=== PATIENT | female | born 1935 | race Caucasian/White ===

== ENCOUNTER → 2017-02-08 | Outpatient (REF) | payer MEDICARE, OTHER ==
[2017-02-08 12:54] LABS: ANION GAP 8 MEQ/L (8-16); BLOOD UREA NITROGEN 17 MG/DL (7-18); CALCIUM LEVEL 9.2 MG/DL (8.8-10.2); CARBON DIOXIDE LEVEL 28 MEQ/L (21-32); CHLORIDE LEVEL 105 MEQ/L (98-107); CREATININE FOR GFR 0.89 MG/DL (0.55-1.02); GLOMERULAR FILTRATION RATE > 60.0 (>32); GLUCOSE, FASTING 85 MG/DL (83-110); POTASSIUM SERUM 4.4 MEQ/L (3.5-5.1); SODIUM LEVEL 141 MEQ/L (136-145)
== END ==
LOC: M LABDRAWC 11:49
PROVIDERS: ATTEND Ophthalmology
DX: I10 Essential (primary) hypertension (principal)

== ENCOUNTER 2017-03-26 16:19 | Emergency (ER) | payer MEDICARE, OTHER ==
[~2017-03-26] VITALS: Ht 152.4 cm; Wt 42.6 kg
[2017-03-26] MEDS ORDERED: [UNRECOGNIZED DRUG - CODE] PO (16:58)
[2017-03-26] MEDS ORDERED: ARTH1TAB4 PO (16:58)
[2017-03-26] MEDS ORDERED: CLAR1TAB2 PO (16:58)
[2017-03-26] MEDS ORDERED: CALC1TAB49 PO (16:58)
[2017-03-26] MEDS ORDERED: VITA10006 PO (16:58)
[2017-03-26] MEDS ORDERED: VERA120C PO (16:58)
[2017-03-26] MEDS ORDERED: [UNRECOGNIZED DRUG - CODE] PO (16:58)
[2017-03-26] MEDS ORDERED: D400400C PO (16:58)
[2017-03-26] MEDS ORDERED: HYDR7.5T66 PO (16:58)
[2017-03-26] MEDS ORDERED: GASTROGRAFIN SOLUTION 30ML PO ONE (17:45)
[2017-03-26 17:46] LABS: BASO % 0.2 % (0.0-1.0); EOS # 0.2 K/mm3 (0.0-0.50); LARGE UNSTAINED CELL # 0.1 K/mm3 (0.0-0.4); LYMPH # 1.7 K/mm3 (1.5-4.5); LYMPH % 14.1 % (24.0-44.0); MEAN CORPUSCULAR HEMOGLOBIN 30.9 pg (27.0-33.0); MEAN CORPUSCULAR HGB CONC 33.6 g/dl (32.0-36.5); MONO # 0.4 K/mm3 (0.0-0.8); MONO % 3.9 % (0.0-5.0); NEUTROPHILS # 8.7 K/mm3 (1.8-7.7); NEUTROPHILS % 78.8 % (36.0-66.0); PLATELET COUNT, AUTOMATED 326 k/mm3 (150-450); RED CELL DISTRIBUTION WIDTH 12.3 % (11.5-14.5); WHITE BLOOD COUNT 11.1 K/mm3 (4.0-10.0)
[2017-03-26 18:06] LABS: ANION GAP 7 MEQ/L (8-16); BLOOD UREA NITROGEN 14 MG/DL (7-18); CALCIUM LEVEL 8.7 MG/DL (8.8-10.2); CARBON DIOXIDE LEVEL 27 MEQ/L (21-32); CHLORIDE LEVEL 105 MEQ/L (98-107); CREATININE FOR GFR 0.91 MG/DL (0.55-1.02); GLOMERULAR FILTRATION RATE > 60.0 (>32); GLUCOSE, FASTING 99 MG/DL (83-110); POTASSIUM SERUM 4.1 MEQ/L (3.5-5.1); SODIUM LEVEL 139 MEQ/L (136-145)
[2017-03-26] MEDS ORDERED: GASTROGRAFIN SOLUTION 30ML (Q9963) PO ONE (18:15)
[2017-03-26] MEDS ORDERED: ISOVUE-370 76% 100ML VIAL (Q9967) As Ordered ONE (18:16)
--- NOTE | 2017-03-26 19:20 | REPUSA ---
CT of the abdomen and pelvis with contrast Clinical statement: Pain. Technique: Multiple axial CT images were obtained from the base of the lungs through the floor of the pelvis utilizing 5 mm axial slices after administration of oral and nonionic intravenous contrast. C oronal and sagittal reconstructions were also obtained. Comparison: 06/04/2007. Findings: Chest: The visualized lung bases are clear. There is a small hiatal hernia. Abdomen: The liver, spleen, pancreas, kidneys, gallbladder, and adrenal glands are unremarkable. Mult iple simple cysts are seen within the right kidney. The aorta demonstrates extensive atherosclerotic disease, without evidence of aneurysm or dissection. There is no evidence of abdominal lymphadenopath y or ascites. Pelvis: There is extensive sigmoid diverticulosis, with increased bowel wall thickening in this regio n when compared to the prior study. There is no evidence of bowel obstruction. The urinary bladder is within normal limits. The other pelvic structures appear grossly intact. There is no evidence of pel buck lymphadenopathy or ascites. Bones: There are no suspicious osseous abnormalities seen. There is moderate degenerative disc diseas e at L3/L4 and L5/S1 with disc bulges noted at L3/L4, L4/L5 and L5/S1. Impression: 1. Diffuse sigmoid diverticulosis with diffuse bowel wall thickening in this region. This could repr esenta subtle diffuse sigmoid diverticulitis in the appropriate clinical setting. No evidence of jose l obstruction. 2. Small hiatal hernia. 3. Multiple simple right renal cyst. 4. Diffuse atherosclerotic disease of the abdominal aorta, without evidence of aneurysm or dissection . 5. Multilevel degenerative disc disease with disc bulging as described.
[2017-03-26] MEDS ORDERED: BENT20TA PO (21:41)
[2017-03-26 21:44] VITALS: BP 169/76
[2017-03-26] MEDS ORDERED: DICYCLOMINE 10 MG CAP PO ONE (21:45)
== END 2017-03-26 22:17 | disposition home or self-care (01) ==
LOC: M ED 17:35
DX: K58.9 Irritable bowel syndrome, unspecified (principal); I10 Essential (primary) hypertension; J44.9 Chronic obstructive pulmonary disease, unspecified; Z87.891 Personal history of nicotine dependence
CPT/HCPCS: 74177; 80048; 85025; 99284; Q9963; Q9967

== ENCOUNTER → 2017-06-25 | Outpatient (CLI) | payer MEDICARE, OTHER ==
[~2017-06-25] MED LIST: ARTH1TAB4 PO; BENT20TA PO; CALC1TAB49 PO; CLAR1TAB2 PO; D400400C PO; HYDR7.5T66 PO; VERA120C PO; VITA10006 PO; [UNRECOGNIZED DRUG - CODE] PO; [UNRECOGNIZED DRUG - CODE] PO
--- NOTE | 2017-06-25 11:24 | REP ---
PA and lateral chest: Comparison is 01/04/2010. Lung coughlin are hyperinflated, as previously. There is focal pleural thickening and increased radiodensity inferolaterally in the right lung as an interval change. This could represent chronic, acute or acute on chronic changes. Left lung is clear. Cardiac size is normal. The central max are mildly enlarged. This is nonspecific but could represent pulmonary hypertension. The max, mediastinum, and bony thorax otherwise are unremarkable. Impression: Focal increased radiodensity pleural thickening inferolaterally on the right as described. Hyperinflation. Mildly enlarged central max.
== END ==
LOC: M CLY 10:09
PROVIDERS: ATTEND Family Medicine
DX: J44.1 Chronic obstructive pulmonary disease with (acute) exacerbation (principal)

== ENCOUNTER → 2017-06-27 | Outpatient (REF) | payer MEDICARE, OTHER ==
[2017-06-27 12:30] LABS: ANION GAP 8 MEQ/L (8-16); BLOOD UREA NITROGEN 15 MG/DL (7-18); CALCIUM LEVEL 8.7 MG/DL (8.8-10.2); CARBON DIOXIDE LEVEL 27 MEQ/L (21-32); CHLORIDE LEVEL 105 MEQ/L (98-107); CREATININE FOR GFR 0.82 MG/DL (0.55-1.02); GLOMERULAR FILTRATION RATE > 60.0 (>32); GLUCOSE, FASTING 93 MG/DL (83-110); POTASSIUM SERUM 4.5 MEQ/L (3.5-5.1); SODIUM LEVEL 140 MEQ/L (136-145)
== END ==
LOC: M SFHCCLAY 09:45
PROVIDERS: ATTEND Family Medicine
DX: R93.8 Abnormal findings on diagnostic imaging of other specified body structures (principal)

== ENCOUNTER → 2017-07-09 | Outpatient (CLI) | payer MEDICARE, OTHER ==
--- NOTE | 2017-07-09 11:17 | REP ---
PA and lateral chest: Comparison is 06/25/2017. The increased radiodensity accompanied by a focal pleural thickening inferolaterally in the right lung on the comparison study has significantly decreased. A persisting nodule like density remains measuring approximately 8 mm in diameter. Followup to complete resolution is recommended. Chronic fibrotic changes and bullous changes throughout the lung coughlin are again identified, unchanged.
== END ==
LOC: M CLY 10:18
PROVIDERS: ATTEND Family Medicine
DX: J18.9 Pneumonia, unspecified organism (principal)

== ENCOUNTER → 2017-08-02 | Outpatient (CLI) | payer MEDICARE, OTHER ==
--- NOTE | 2017-08-02 13:25 | REP ---
PA and lateral chest: Comparison is 07/09/2017. The density inferolaterally in the right lung continues to decrease in size and now has a fibro linear. Rather than a nodular appearance and measures 6 mm (8 mm previously. As previously followup to complete resolution is recommended. The interstitial markings are diffusely coarsened, unchanged, compatible with chronic interstitial lung disease. Cardiac size is upper normal. The max, mediastinum, bony thorax are unremarkable. Impression: The density inferolaterally in the right lung continues to decrease. However, continued follow-up to complete resolution or until the lesion is documented as stable is recommended.
== END ==
LOC: M CLY 11:21
PROVIDERS: ATTEND Family Medicine
DX: J18.9 Pneumonia, unspecified organism (principal)

== ENCOUNTER → 2017-08-16 | Outpatient (CLI) | payer MEDICARE, OTHER ==
--- NOTE | 2017-08-16 10:57 | REP ---
Chest two views HISTORY: Abnormal chest x-ray Comparison: 08/02/2017 The lungs are hyperinflated. A minimal increase in interstitial markings is present in the lungs consistent with chronic interstitial change. A small curvilinear parenchymal density is present in the right lower lobe that is decreased compared to the previous study. The heart is upper limits of normal in size. The pulmonary vasculature is normal in appearance. The bony structure is intact. IMPRESSION: 1. Chronic interstitial change. 2. There is a small curvilinear parenchymal density in the right lower lobe that is decreased compared to the previous study.
== END ==
LOC: M CLY 10:03
PROVIDERS: ATTEND Family Medicine
DX: R93.8 Abnormal findings on diagnostic imaging of other specified body structures (principal); R91.8 Other nonspecific abnormal finding of lung field

== ENCOUNTER → 2017-09-14 | Outpatient (CLI) | payer MEDICARE, OTHER ==
--- NOTE | 2017-09-14 10:54 | REP ---
PA and lateral chest: Comparisons are 11 06/27/2017, 08/02/2017, 07/09/2079, 06/25/2017. Focal density identified previously inferolaterally in the right lung has resolved, compatible with transient infiltrate/atelectasis. The lung coughlin are now clear but appear hyperinflated. There is mild interstitial coarsening, unchanged, compatible with interstitial lung disease. The cardiac size is normal. The max, mediastinum, and bony thorax are unremarkable. Impression: The focal density inferolaterally in the right lung is resolved compatible with transient infiltrate/atelectasis. Hyperinflation and mild interstitial coarsening are noted compatible with chronic lung disease. Otherwise, negative chest. Signed by Ramo Fang MD 09/14/2017 10:46 A
== END ==
LOC: M CLY 09:51
PROVIDERS: ATTEND Family Medicine
DX: R93.8 Abnormal findings on diagnostic imaging of other specified body structures (principal); R91.8 Other nonspecific abnormal finding of lung field

== ENCOUNTER → 2017-11-21 | Outpatient (CLI) | payer MEDICARE, OTHER | LOC: M CLY 13:44 | DX: M25.762 Osteophyte, left knee (principal); M25.552 Pain in left hip | CPT/HCPCS: 73502 ==

== ENCOUNTER 2017-11-24 12:30 | Emergency (ER) | payer MEDICARE, OTHER ==
[2017-11-24] MEDS: FLEET OIL RETENTION ENEMA PR (15:47)
== END 2017-11-24 17:50 | disposition home or self-care (01) ==
LOC: M ED 12:30
DX: K56.41 Fecal impaction (principal); K64.8 Other hemorrhoids; I10 Essential (primary) hypertension; J44.9 Chronic obstructive pulmonary disease, unspecified; K58.9 Irritable bowel syndrome, unspecified; K21.9 Gastro-esophageal reflux disease without esophagitis; Z86.69 Personal history of other diseases of the nervous system and sense organs; Z79.899 Other long term (current) drug therapy; Z88.1 Allergy status to other antibiotic agents; Z88.8 Allergy status to other drugs, medicaments and biological substances; Z88.5 Allergy status to narcotic agent; Z88.0 Allergy status to penicillin
CPT/HCPCS: 74018

== ENCOUNTER → 2018-07-26 | Outpatient (REF) | payer MEDICARE | LOC: M SFHCCLAY 17:10 | DX: D48.5 Neoplasm of uncertain behavior of skin (principal); D04.62 Carcinoma in situ of skin of left upper limb, including shoulder (principal); Z53.8 Procedure and treatment not carried out for other reasons | CPT/HCPCS: 88305 ==

== ENCOUNTER → 2018-08-15 | Outpatient (REF) | payer MEDICARE | LOC: M LAB REF 17:55 | DX: D04.62 Carcinoma in situ of skin of left upper limb, including shoulder (principal) | CPT/HCPCS: 88305 ==

== ENCOUNTER → 2019-04-23 | Outpatient (REF) | payer MEDICARE, OTHER ==
[~2019-04-23] MED LIST changes: +HYOS0.1214 PO; +MIRA3350 PO; +MUCI600T37 PO; +NASA1SPR; +SALI0.6528; +SYST1SOL OU; +SYSTSOL11 OU; +TYLE325T5 PO; +TYLE500T78 PO; +VERA180C PO; -[UNRECOGNIZED DRUG - CODE] PO
== END ==
LOC: M SFHCPLAZ 19:12
PROVIDERS: ATTEND Dermatology
DX: D22.9 Melanocytic nevi, unspecified (principal); D23.5 Other benign neoplasm of skin of trunk

== ENCOUNTER → 2019-06-10 | Outpatient (REF) | payer MEDICARE, OTHER ==
[2019-06-11 11:25] LABS: CALCIUM LEVEL 9.7 MG/DL (8.8-10.2); CREATININE FOR GFR 1.09 MG/DL (0.55-1.30); GLOMERULAR FILTRATION RATE 50.8 (>32); POTASSIUM SERUM 4.6 MEQ/L (3.5-5.1)
== END ==
LOC: M SFHCCLAY 14:10
PROVIDERS: ATTEND Family Medicine
DX: R10.84 Generalized abdominal pain (principal)
CPT/HCPCS: 80048; G0463

== ENCOUNTER → 2019-10-02 | Outpatient (CLI) | payer MEDICARE, OTHER ==
--- NOTE | 2019-10-02 16:18 | REP ---
Clinical: Lower back pain. Technique: AP, lateral, coned-down views of the lumbosacral spine. Findings: Age-related osteopenia, chronic levoconvex scoliosis, and advanced multilevel degenerative changes are appreciated throughout the lumbosacral spine. No obvious acute fracture / compression injury or subluxation is appreciated. Coned-down view demonstrates heterogeneous clustered calcifications replacing and surrounding the coccyx suggesting sequelae of old injury. Impression: Osteopenia and advanced degenerative changes through the lumbosacral spine. Findings to suggest old injury involving the coccyx. Electronically Signed by Brendan Cortez MD 10/02/2019 04:10 P
== END ==
LOC: M CLY 15:53
PROVIDERS: ATTEND Family Medicine
DX: M51.37 Other intervertebral disc degeneration, lumbosacral region (principal); M53.3 Sacrococcygeal disorders, not elsewhere classified
CPT/HCPCS: 72100; G0463

== ENCOUNTER → 2020-03-19 | Outpatient (REF) | payer MEDICARE, OTHER ==
[2020-03-19 11:42] LABS: HEMATOCRIT 39.7 % (36.0-47.0); HEMOGLOBIN 12.8 g/dl (12.0-15.5); MEAN CORPUSCULAR HEMOGLOBIN 30.7 pg (27.0-33.0); MEAN CORPUSCULAR HGB CONC 32.2 g/dl (32.0-36.5); MEAN CORPUSCULAR VOLUME 95.2 fl (80.0-96.0); PLATELET COUNT, AUTOMATED 269 10^3/uL (150-450); RED BLOOD COUNT 4.17 10^6/uL (4.00-5.40); WHITE BLOOD COUNT 10.1 10^3/uL (4.0-10.0)
[2020-03-19 12:26] LABS: ALBUMIN 3.6 GM/DL (3.2-5.2); BILIRUBIN,TOTAL 0.5 MG/DL (0.2-1.0); CALCIUM LEVEL 9.2 MG/DL (8.8-10.2); GLOMERULAR FILTRATION RATE 56.1 (>32); POTASSIUM SERUM 4.8 MEQ/L (3.5-5.1); THYROID STIMULATING HORMONE 6.51 uIU/ML (0.358-3.740); TOTAL PROTEIN 7.1 GM/DL (6.4-8.2)
== END ==
LOC: M SFHCCLAY 08:15
PROVIDERS: ATTEND Family Medicine
DX: M53.3 Sacrococcygeal disorders, not elsewhere classified (principal); I10 Essential (primary) hypertension

== ENCOUNTER → 2020-03-22 | Outpatient (CLI) | payer MEDICARE, OTHER ==
--- NOTE | 2020-03-22 10:24 | REP ---
LUMBAR SPINE SERIES: Three views. HISTORY: Pain in the coccyx. Comparison lumbar spine radiographs October 02, 2019. FINDINGS: Vascular calcification is seen in a normal caliber aorta. There is a levoconvex curve of the lumbar spine. Lumbar vertebral body heights are preserved. There is degenerative spondylosis change with degenerative disc changes most pronounced at L3-4 and L5-S1. Alignment is otherwise normal. Psoas margins are symmetric. Sacrum and SI joints appear intact. IMPRESSION: Mild levoconvex curvature and degenerative spondylosis changes stable from October 02, 2019. Electronically Signed by Alexey Pedroza MD 03/22/2020 02:52 P
--- NOTE | 2020-03-22 10:34 | REP ---
PELVIS: Single AP view. HISTORY: Painful coccyx. Comparison radiographs are from November 24, 2017. Comparison CT study is reviewed from March 26, 2017. FINDINGS: There is diffuse osteopenia. Femoral heads are smooth and rounded joint spaces are preserved. No sacral or coccygeal lesion is seen. SI joints are intact. There is a grouping of predominantly rounded calcifications in the soft tissues just distal to the coccyx projecting in the midline. This measures approximately 4 cm. It is visible in retrospect on comparison CT study from March 26, 2017. By CT study, this is in the posterior midline just distal to the coccyx in the posterior perineal region. Prior dystrophic calcification from pilonidal cyst versus coccygeal osteochondroma versus other lesion. There is no evidence of progression since March 2017 consistent with a nonaggressive benign lesion. Indeed there were one or two calcifications here in 2006. Vascular calcifications also noted. No erosive changes are seen. IMPRESSION: 4 cm calcific mass lesion in the posterior perineum just distal to the tip of the coccyx unchanged from March 26, 2017 prior study as discussed above. Diffuse osteopenia and vascular calcification is noted. Otherwise negative. Electronically Signed by Alexey Pedroza MD 03/22/2020 02:54 P
== END ==
LOC: M CLY 08:58
PROVIDERS: ATTEND Family Medicine
DX: M53.3 Sacrococcygeal disorders, not elsewhere classified (principal); M15.9 Polyosteoarthritis, unspecified; M85.88 Other specified disorders of bone density and structure, other site; M47.816 Spondylosis without myelopathy or radiculopathy, lumbar region

== ENCOUNTER → 2020-05-21 | Outpatient (REF) | payer MEDICARE, OTHER ==
[2020-07-16 17:22] LABS: FREE T4 0.89 NG/DL (0.76-1.46); THYROID STIMULATING HORMONE 5.2 uIU/ML (0.358-3.740)
== END ==
LOC: M SFHCCLAY 08:34
PROVIDERS: ATTEND Family Medicine
DX: E03.9 Hypothyroidism, unspecified (principal)

== ENCOUNTER 2021-01-31 12:10 | Inpatient (IN) | payer MEDICARE, OTHER ==
[~2021-01-31] VITALS: Ht 162.6 cm; Wt 37.1 kg
[2021-01-31] MEDS ORDERED: HYOS125TA SL (12:25)
[2021-01-31] MEDS: NS 1,000 ML IV SCH ×2 (13:04→17:44)
[2021-01-31 13:06] LABS: BASO # 0.1 10^3/uL (0.0-0.2); BASO % 0.5 % (0.0-1.0); EOS # 0.1 10^3/uL (0.0-0.5); EOS % 0.6 % (0.0-3.0); HEMATOCRIT 39.3 % (36.0-47.0); HEMOGLOBIN 12.4 g/dl (12.0-15.5); LYMPH # 1.7 10^3/uL (1.5-5.0); LYMPH % 16.4 % (24.0-44.0); MEAN CORPUSCULAR HEMOGLOBIN 29.9 pg (27.0-33.0); MEAN CORPUSCULAR HGB CONC 31.6 g/dl (32.0-36.5); MEAN CORPUSCULAR VOLUME 94.7 fl (80.0-96.0); MONO # 0.7 10^3/uL (0.0-0.8); MONO % 6.9 % (2.0-8.0); NEUTROPHILS # 7.9 10^3/uL (1.5-8.5); PLATELET COUNT, AUTOMATED 248 10^3/uL (150-450); RED BLOOD COUNT 4.15 10^6/uL (4.00-5.40); WHITE BLOOD COUNT 10.6 10^3/uL (4.0-10.0)
[2021-01-31 13:23] LABS: ALBUMIN 3.8 GM/DL (3.2-5.2); BILIRUBIN,DIRECT 0.1 MG/DL (0.0-0.2); BILIRUBIN,TOTAL 0.5 MG/DL (0.2-1.0); CALCIUM LEVEL 9.6 MG/DL (8.8-10.2); CREATININE FOR GFR 0.97 MG/DL (0.55-1.30); TOTAL PROTEIN 7.6 GM/DL (6.4-8.2)
[2021-01-31] MEDS: GASTROGRAFIN SOLUTION 30ML PO SCH ×2 (14:11→15:34)
[2021-01-31] MEDS ORDERED: ISOVUE-370 76% 100ML VIAL As Ordered ONE (16:09)
--- NOTE | 2021-01-31 16:35 | REP ---
INDICATION: right sided abd pain. COMPARISON: Comparison CT abdomen pelvis March 26, 2017.. TECHNIQUE: Helical scanning is acquired following the intravenous injection of 88 mL of Isovue 370. Oral contrast was also administered. 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 Vascular calcification is noted. Heart appears enlarged. On axial CT images the lung bases are essentially clear. No pleural effusion is seen. Cardiomegaly is confirmed. No pericardial effusion is seen. No splenic lesion is appreciated. The liver is not enlarged. There is a cyst in the inferior aspect the left lobe of the liver near the gallbladder which measures 3.6 cm in greatest diameter. This is a little larger but otherwise unchanged from the [address] study. Normal adrenals are seen. The kidneys enhance symmetrically. There are bilateral renal cortical cysts. The largest of these is in the lower pole of the right kidney measuring 3.1 cm in diameter. No hydronephrosis or renal mass is observed. A normal appendix is seen in the right lower quadrant. There are a borderline to mildly dilated small bowel loops in the abdomen. Pelvic CT images demonstrate a new right inguinal hernia trans Rosado a small bowel loop displaying an air-fluid level. There is moderate stool in the right and left colon. Sigmoid colon diverticulosis is seen without evidence of diverticulitis. Urinary bladder is unremarkable. Dystrophic calcification and some soft tissue fullness seen adjacent to the coccyx consistent with clip chronic inflammation or old trauma. No uterine or adnexal abnormality is seen. No other abdominal wall defect is observed. Bone window settings demonstrate diffuse osteopenia. There are degenerative spondylosis changes. Normal caliber aorta. IMPRESSION: New right inguinal hernia transmits a loop of small bowel. Borderline to mildly dilated small bowel loops proximal to this question some degree of small bowel obstruction. There is a left lobe hepatic cyst in there are bilateral renal cortical cysts. Left colonic diverticulosis is seen. Normal appendix is noted. <Electronically signed by Jovan Pedroza > 01/31/21 1035
[2021-01-31] MEDS ORDERED: ACETAMINOPHEN TAB 650MG DOSE (2X325MG) PO PRN (17:30)
[2021-01-31] MEDS ORDERED: CALC500T38 PO (17:41)
[2021-01-31] MEDS ORDERED: CALCCAP4 PO (17:41)
[2021-01-31] MEDS ORDERED: HYDR-4431 PO (17:41)
[2021-01-31] MEDS ORDERED: MOME50SP2 NARES (17:41)
[2021-01-31] MEDS ORDERED: D31000TA2 PO (17:41)
[2021-01-31] MEDS ORDERED: SYST1SOL OU (17:41)
--- NOTE | 2021-01-31 17:44 | HPEPDOC ---
[facility] Medical History & Physical Date of Admission Jan 31, 2021 Date of Service: Jan 31, 2021 History and Physical Chief complaint: Presented to ER with abdominal pain History of present illness: Patient is an 85-year-old female who presented to the emergency room with complaints of abdominal pain. She reports that she is experiencing right lower quadrant abdominal pain that started yesterday morning and into today. Patient reports the pain as a 5-6/10, aggravated with movement and touch, no alleviation with hydrocodone which she uses for her back pain. Mild relief with heating pad. Patient has denied any nausea, vomiting. Reports that she did have 2 bowel move ments this morning that were regular without any evidence of blood. She denies any urinary discomfort, but does report burning of her rectum. Patient denies any chest pain, shortness of breath, or palpitations. Patient has reported a mild cough has not changed significantly. She denies any fevers or chills. Patient reports her appetite is relatively poor but is unsure of any changes in her weight Past Medical History: HTN COPD IBS Osteopenia Migraine headaches Chronic lower back pain 2/2 degenerative disk disease / osteoporosis GERD Past Surgical History: Dilation and curettage 1979 Sinus surgery 2003 Bilateral oophorectomy 2006 Uterus and bladder suspension 2008 Cataract removal 2017 Left shoulder squamous cell carcinoma resection 2018 Allergies: See below Medications: See below Family History: - No history of malignancies Social History: - Denies the use of alcohol or illicit drugs; patient reports that she quit smoking 2 years ago but was a smoker for greater than 30 years - Denies recent travel or sick contacts - Lives alone and is - Patient reports that she had both doses of her COVID19 vaccine most recent which January 10 - Occupation; 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 Review of Systems: 10 point review of systems complete, all negative otherwise stated in HPI Physical exam: - Vitals: BP [171/78], HR [78], RR [18], Sat [94%RA], Temp [98.2F] - General: Lying in bed, No acute distress, Speaking in full sentences, AAOx3 - HEENT: NC, AT, PERRLA - CVS: RRR, +S1S2, - Murmurs / rubs / gallops - Lungs: Fair air entry bilaterally, Clear to auscultation, No appreciable wheezing / rales / rhonchi - Abdomen: Soft, Non-distended, right upper and lower quadrant tenderness, bowel sounds appreciated in all four quadrants - Extremities: No lower extremity edema, No calf tenderness - Neuro: No focal motor or sensory deficit - Skin: No visible rashes Labs: See below Imaging: CT abdomen / pelvis 01/31: New right inguinal hernia transmits a loop of small bowel. Borderline to mildly dilated small bowel loops proximal to this question some degree of small bowel obstruction. There is a left lobe hepatic cyst in there are bilateral renal cortical cysts. Left colonic diverticulosis is seen. Normal appendix is noted. EKG: See below Assessment and Plan: Abdominal pain - possibly 2/2 inguinal hernia, less likely 2/2 pancreatitis, less likely 2/2 gall bladder etiology - Patient is reporting abdominal pain since yesterday - She is hemodynamically stable and afebrile - Physical reveals tenderness of right lower and upper quadrant; bowel sounds are present - Mild leukocytosis - Imaging noted above - Will check blood cultures, pro-calcitonin - Will start IV fluid hydration - Case discussed with general surgery; will be evaluating patient in the ER - Will keep patient NPO at this time Urinary retention - possibly 2/2 abdominal pain / SBO? - Patient had a Zuleta catheter placed in the emergency room after bladder scans had revealed 500 mL of urine despite 300 mL of urine production - Hemodynamically stable and afebrile - UA without any evidence of infection - Will hold off on antibiotic therapy at this time HTN - BP appears to be elevated; possibly secondary to pain - c/w Verapamil with holding parameters Chronic COPD - No evidence of exacerbation - Patient does not use any inhalers as an outpatient IBS Osteopenia - c/w Vitamin D supplementation - c/w Fall precautions Migraine headaches - c/w Tylenol PRN Chronic lower back pain 2/2 degenerative disk disease / osteoporosis - Will replace Hydrocodone with Morphine while NPO Patient had reported firmness of R breast - She reports that she has not yet had a mammogram in several years - Patient has been advised to get a mammogram as soon as possible - Will have outpatient follow-up with primary care provider for screening mammogram GERD - Will start Protonix DVT prophylaxis - Will start Heparin Code status: - Discussed code status in the ER - Patient reports that she does not want chest compressions, nor does she want to be connected to a ventilator - Reports she has filled out a MOLST form already; although not on her currently - Patient is DNR / DNI Vital Signs Vital Signs Date Time Temp Pulse Resp B/P (MAP) Pulse Ox O2 Delivery O2 Flow Rate FiO2 01/31/21 13:01 98.2 01/31/21 13:00 77 94 01/31/21 12:45 171/78 (109) 01/31/21 12:17 18 Laboratory Data Labs 24H Laboratory Tests 2 01/31/21 12:47: Immature Granulocyte % (Auto) 0.6, Neutrophils (%) (Auto) 75.0H, Lymphocytes (%) (Auto) 16.4L, Monocytes (%) (Auto) 6.9, Eosinophils (%) (Auto) 0.6, Basophils (%) (Auto) 0.5, Neutrophils # (Auto) 7.9, Lymphocytes # (Auto) 1.7, Monocytes # (Auto) 0.7, Eosinophils # (Auto) 0.1, Basophils # (Auto) 0.1, Nucleated Red Blood Cells % (auto) 0.0, Anion Gap 4L, Glomerular Filtration Rate 58.0, Calcium Level 9.6, Total Bilirubin 0.5, Direct Bilirubin 0.1, Aspartate Amino Transf (AST/SGOT) 16, Alanine Aminotransferase (ALT/SGPT) 17, Alkaline Phosphatase 97, Total Protein 7.6, Albumin 3.8, Albumin/Globulin Ratio 1.0L, Lipase 73 01/31/21 16:39: Urine Color YELLOW, Urine Appearance CLEAR, Urine pH 7.0, Urine Specific [place] 1.013, Urine Protein NEGATIVE, Urine Glucose (UA) NEGATIVE, Urine Ketones TRACEH, Urine Blood NEGATIVE, Urine Nitrite NEGATIVE, Urine Bilirubin NEGATIVE, Urine Urobilinogen 0.2, Urine Leukocyte Esterase NEGATIVE, Urine WBC (Auto) 2, Urine RBC (Auto) 5H, Urine Hyaline Casts (Auto) 0, Urine Bacteria (Auto) NEGATIVE, Urine Squamous Epithelial Cells 0, Urine Sperm (Auto) 01/31/21 17:11: CBC/BMP Laboratory Tests 01/31/21 12:47 Home Medications Scheduled Ascorbate Calcium (Vitamin C) 500 Mg Tablet, 500 MG PO DAILY TAKES AT NOON Calcium Carbonate/Vitamin D3 (Calcium 600 + Vit D 400 Softgl) 1 Each Capsule, 1 CAP PO DAILY TAKES AT NOON Cholecalciferol (Vitamin D3) (Vitamin D3) 1,000 Unit Tablet, 1,000 UNITS PO DAILY TAKES AT NOON Hydrocodone/Acetaminophen (Hydrocodone-Acetamin 7.5-300) 1 Each Tablet, 1 TAB PO BID Multivit-Min/FA/Lycopen/Lutein (Sentry Senior Tablet) 1 Tab Tab, 1 TAB PO DAILY TAKES AT NOON Polyethylene Glycol 3350 (Miralax) 1 Pow Pow, 8.5 GM PO DAILY Propylene Glycol/Peg 400 (Systane 0.3-0.4% Eye Drops) 15 Ml Drops, 1 DROP OU BID Verapamil HCl (Verapamil ER) 180 Mg Cap, 180 MG PO DAILY Scheduled PRN Hyoscyamine Sulfate (Hyoscyamine Sulfate) 0.125 Mg Tab.subl, 0.125 MG SL Q4H PRN for ABDOMINAL PAIN Mometasone Furoate (Mometasone Furoate) 17 Gm Golf.pump, 2 SPRAYS NARES BID PRN for ALLERGIES Allergies Coded Allergies: Penicillins (Verified Allergy, Intermediate, HIVES, 01/31/21) clindamycin (Verified Allergy, Intermediate, 01/31/21) Quinolones (Verified Allergy, Unknown, TEQUIN AND CIPRO, 01/31/21) cefdinir (Verified Allergy, Unknown, 01/31/21) sodium benzoate (Verified Allergy, Unknown, FROM OMNICEF, 01/31/21) topiramate (Verified Allergy, Unknown, 01/31/21) celecoxib (Verified Adverse Reaction, Intermediate, CAUSED ANEMIA, 01/31/21) tramadol (Verified Adverse Reaction, Intermediate, 01/31/21) Cephalosporins (Verified Adverse Reaction, Mild, DIARRHEA, 01/31/21) Estrogens (Verified Adverse Reaction, Mild, VAGINAL DISCHARGE, 01/31/21) clarithromycin (Verified Adverse Reaction, Mild, ABDOMINAL PAIN, 01/31/21) metronidazole (Verified Adverse Reaction, Mild, PASS OUT, 01/31/21) AIME STONE MD Jan 31, 2021 17:43
[2021-01-31 18:04] LABS: RSV AMPLIFICATION NEGATIVE (NEGATIVE)
[2021-01-31] MEDS ORDERED: HYOSCYAMINE SULFATE 0.125 MG SUBL TABLET SL PRN (18:20)
[2021-01-31 20:35] VITALS: BP 159/69
--- NOTE | 2021-01-31 20:37 | ECGEPIP ---
[facility] - ED Test Date: 2021-01-31 Pat Name: KALA CURRAN Department: Room: [place] [address] Gender: Female Materials Assistant: SEFERINO : [id number] Requested By: KASIE Donato Order Number: [id number] Reading MD: Matt Gutierrez Measurements Intervals [place] Rate: 65 P: 67 UT: 168 QRS: -63 QRSD: 86 T: 67 QT: 438 QTc: 455 Interpretive Statements Normal sinus rhythm Left anterior fascicular block Minimal voltage criteria for LVH, may be normal variant ( [place] product ) Septal infarct , age undetermined NO PRIORS FOR COMPARISON Electronically Signed on 01-31-2021 20:36:54 EDT by Matt Gutierrez
[2021-01-31] MEDS: PANTOPRAZOLE 40MG VIAL (C9113 PER 1) IV SCH (21:38)
[2021-01-31] MEDS: HEPARIN SOD (PORCINE) 5000UNITS/ML 1ML VIAL/SYRINGE SC SCH (21:40)
[2021-01-31] MEDS: MORPHINE 2 MG/ML 1ML VIAL (J2270) IV PRN (21:41)
[2021-01-31] MEDS: HYDROcodone/APAP LIQUID 7.5-325MG 15ML UDC (LORTAB ELIXIR) PO SCH (22:24)
[2021-02-01] VITALS: BP 149/67
[2021-02-01 04:00] VITALS: BP 157/65
[2021-02-01 05:15] LABS: BASO # 0.1 10^3/uL (0.0-0.2); BASO % 0.4 % (0.0-1.0); EOS # 0.1 10^3/uL (0.0-0.5); EOS % 0.7 % (0.0-3.0); HEMATOCRIT 36.1 % (36.0-47.0); HEMOGLOBIN 11.4 g/dl (12.0-15.5); LYMPH # 1.8 10^3/uL (1.5-5.0); LYMPH % 15.4 % (24.0-44.0); MEAN CORPUSCULAR HEMOGLOBIN 29.5 pg (27.0-33.0); MEAN CORPUSCULAR HGB CONC 31.6 g/dl (32.0-36.5); MEAN CORPUSCULAR VOLUME 93.5 fl (80.0-96.0); MONO # 0.8 10^3/uL (0.0-0.8); MONO % 6.9 % (2.0-8.0); NEUTROPHILS % 76.3 % (36.0-66.0); PLATELET COUNT, AUTOMATED 224 10^3/uL (150-450); RED BLOOD COUNT 3.86 10^6/uL (4.00-5.40); WHITE BLOOD COUNT 11.7 10^3/uL (4.0-10.0)
[2021-02-01 05:37] LABS: BLOOD UREA NITROGEN 16 MG/DL (7-18); CALCIUM LEVEL 8.4 MG/DL (8.8-10.2); CARBON DIOXIDE LEVEL 24 MEQ/L (21-32); CHLORIDE LEVEL 109 MEQ/L (98-107); CREATININE FOR GFR 0.74 MG/DL (0.55-1.30); GLOMERULAR FILTRATION RATE > 60.0 (>32); GLUCOSE, FASTING 81 MG/DL (70-100); MAGNESIUM LEVEL 1.7 MG/DL (1.8-2.4); POTASSIUM SERUM 3.8 MEQ/L (3.5-5.1); SODIUM LEVEL 143 MEQ/L (136-145)
[2021-02-01] MEDS: HEPARIN SOD (PORCINE) 5000UNITS/ML 1ML VIAL/SYRINGE SC SCH ×3 (05:58→20:17)
[2021-02-01 07:15] VITALS: BP 138/65
[2021-02-01] MEDS ORDERED: MAG SULF 1GM/100ML (MAG RUN) 1 GM in IV 1 EA IV ONE (08:00)
[2021-02-01] MEDS: VERAPAMIL 180MG EXTENDED RELEASE TABLET PO SCH (08:03)
[2021-02-01] MEDS: HYDROcodone/APAP LIQUID 7.5-325MG 15ML UDC (LORTAB ELIXIR) PO SCH ×2 (08:04→20:15)
[2021-02-01] MEDS: NS 1,000 ML IV SCH (11:29)
[2021-02-01 12:02] VITALS: BP 101/51
--- NOTE | 2021-02-01 12:39 | IPNPDOC ---
Text Note Date of Service The patient was seen on 02/01/21. NOTE Subjective: Patient seen and examined at bedside. No acute overnight events reported. Patient voices no new medical complaints this morning. Objective: General: NAD, lying comfortably in bed, elderly HEENT: NC/AT, EOMI Lungs: CTA B/L Heart: +S1S2, RRR Abd: soft, NT, +BS Ext: no edema Assessment and Plan: 85-year-old female who presented to the emergency room with complaints of abdominal pain. She reported right lower quadrant abdominal pain for two days, rated as 5-6/10, aggravated with movement and touch, no alleviation with hydrocodone which she uses for her back pain. Mild relief with heating pad. #Abdominal pain - possibly 2/2 inguinal hernia, less likely 2/2 pancreatitis, less likely 2/2 gall bladder etiology - Physical reveals tenderness of right lower and upper quadrant - Mild leukocytosis - Imaging noted above - Will check blood cultures, pro-calcitonin - surgery c/s pending - clear liquids for now #Urinary retention - possibly 2/2 abdominal pain / SBO? - Patient had a Zuleta catheter placed in the emergency room after bladder scans had revealed 500 mL of urine despite 300 mL of urine production - Hemodynamically stable and afebrile - UA without any evidence of infection - Will hold off on antibiotic therapy at this time #HTN - BP appears to be elevated; possibly secondary to pain - c/w Verapamil with holding parameters #Chronic COPD - No evidence of exacerbation - Patient does not use any inhalers as an outpatient #IBS #Osteopenia - c/w Vitamin D supplementation - c/w Fall precautions #Migraine headaches - c/w Tylenol PRN #Chronic lower back pain 2/2 degenerative disk disease / osteoporosis - Will replace Hydrocodone with Morphine while NPO #Patient had reported firmness of R breast - She reports that she has not yet had a mammogram in several years - Patient has been advised to get a mammogram as soon as possible - Will have outpatient follow-up with primary care provider for screening mammogram #GERD - Will start Protonix #DVT prophylaxis - Heparin Code status: - Patient is DNR / DNI VS,Fishbone, I+O VS, Fishbone, I+O Laboratory Tests 01/31/21 12:47 02/01/21 04:29 Vital Signs Date Time Temp Pulse Resp B/P (MAP) Pulse Ox O2 Delivery O2 Flow Rate FiO2 02/01/21 12:02 98.0 67 18 101/51 (68) 96 Room Air I&O- Last 24 Hours up to 6 AM 02/01/21 06:00 Intake Total 700 ml Output Total 2200 ml Balance -1500 ml FERNANDO VASQUEZ MD Feb 01, 2021 12:39
[2021-02-01 18:30] VITALS: BP 149/66
[2021-02-01] MEDS: MORPHINE 2 MG/ML 1ML VIAL (J2270) IV PRN (18:31)
[2021-02-01 20:13] VITALS: BP 159/71
[2021-02-01] MEDS: PANTOPRAZOLE 40MG VIAL (C9113 PER 1) IV SCH (20:14)
[2021-02-02 03:44] VITALS: BP 131/64
[2021-02-02 05:16] LABS: BASO % 0.3 % (0.0-1.0); EOS # 0.1 10^3/uL (0.0-0.5); EOS % 1.5 % (0.0-3.0); HEMATOCRIT 36.2 % (36.0-47.0); HEMOGLOBIN 11.8 g/dl (12.0-15.5); LYMPH # 1.5 10^3/uL (1.5-5.0); LYMPH % 16.1 % (24.0-44.0); MEAN CORPUSCULAR HEMOGLOBIN 30.7 pg (27.0-33.0); MEAN CORPUSCULAR HGB CONC 32.6 g/dl (32.0-36.5); MEAN CORPUSCULAR VOLUME 94.3 fl (80.0-96.0); MONO # 0.7 10^3/uL (0.0-0.8); MONO % 7.2 % (2.0-8.0); NEUTROPHILS # 6.7 10^3/uL (1.5-8.5); NEUTROPHILS % 74.6 % (36.0-66.0); PLATELET COUNT, AUTOMATED 222 10^3/uL (150-450); RED BLOOD COUNT 3.84 10^6/uL (4.00-5.40); WHITE BLOOD COUNT 9.1 10^3/uL (4.0-10.0)
[2021-02-02 05:41] LABS: BLOOD UREA NITROGEN 11 MG/DL (7-18); CALCIUM LEVEL 8.4 MG/DL (8.8-10.2); CARBON DIOXIDE LEVEL 29 MEQ/L (21-32); CHLORIDE LEVEL 112 MEQ/L (98-107); CREATININE FOR GFR 0.78 MG/DL (0.55-1.30); GLOMERULAR FILTRATION RATE > 60.0 (>32); GLUCOSE, FASTING 86 MG/DL (70-100); POTASSIUM SERUM 3.8 MEQ/L (3.5-5.1); SODIUM LEVEL 145 MEQ/L (136-145)
[2021-02-02] MEDS: HEPARIN SOD (PORCINE) 5000UNITS/ML 1ML VIAL/SYRINGE SC SCH ×3 (06:13→20:46)
[2021-02-02 08:00] VITALS: BP 150/65
[2021-02-02] MEDS: HYDROcodone/APAP LIQUID 7.5-325MG 15ML UDC (LORTAB ELIXIR) PO SCH ×2 (08:23→20:46)
[2021-02-02] MEDS: VERAPAMIL 180MG EXTENDED RELEASE TABLET PO SCH (08:23)
--- NOTE | 2021-02-02 09:54 | IPNPDOC ---
Text Note Date of Service The patient was seen on 02/02/21. NOTE Subjective: Patient seen and examined at bedside. No acute overnight events reported. Patient voices no new medical complaints this morning. Objective: General: NAD, lying comfortably in bed, elderly HEENT: NC/AT, EOMI Lungs: CTA B/L Heart: +S1S2, RRR Abd: soft, NT, +BS Ext: no edema Assessment and Plan: 85-year-old female who presented to the emergency room with complaints of abdominal pain. She reported right lower quadrant abdominal pain for two days, rated as 5-6/10, aggravated with movement and touch, no alleviation with hydrocodone which she uses for her back pain. Mild relief with heating pad. #Abdominal pain - improving - possibly 2/2 inguinal hernia, less likely 2/2 pancreatitis, less likely 2/2 gall bladder etiology - Physical reveals tenderness of right lower and upper quadrant - Mild leukocytosis - Imaging noted above - Will check blood cultures, pro-calcitonin - surgery c/s pending - advancing diet as tolerated #Urinary retention - possibly 2/2 abdominal pain / SBO? - Patient had a Zuleta catheter placed in the emergency room after bladder scans had revealed 500 mL of urine despite 300 mL of urine production - Hemodynamically stable and afebrile - UA without any evidence of infection - Will hold off on antibiotic therapy at this time #HTN - BP appears to be elevated; possibly secondary to pain - c/w Verapamil with holding parameters #Chronic COPD - No evidence of exacerbation - Patient does not use any inhalers as an outpatient #IBS #Osteopenia - c/w Vitamin D supplementation - c/w Fall precautions #Migraine headaches - c/w Tylenol PRN #Chronic lower back pain 2/2 degenerative disk disease / osteoporosis - Will replace Hydrocodone with Morphine while NPO #Patient had reported firmness of R breast - She reports that she has not yet had a mammogram in several years - Patient has been advised to get a mammogram as soon as possible - Will have outpatient follow-up with primary care provider for screening liang mogram #GERD - Will start Protonix #DVT prophylaxis - Heparin Code status: - Patient is DNR / DNI Dispo: advancing diet, PT/OT, surgery c/s pending VS,Fishbone, I+O VS, Fishbone, I+O Laboratory Tests 02/02/21 04:30 Vital Signs Date Time Temp Pulse Resp B/P (MAP) Pulse Ox O2 Delivery O2 Flow Rate FiO2 02/02/21 08:53 18 Room Air 02/02/21 08:23 85 150/65 02/02/21 08:00 97.7 94 I&O- Last 24 Hours up to 6 AM 02/02/21 06:00 Intake Total 2730 ml Output Total 1500 ml Balance 1230 ml FERNANDO VASQUEZ MD Feb 02, 2021 09:54
[2021-02-02 12:00] VITALS: BP 95/90
[2021-02-02 12:30] VITALS: BP 105/54
[2021-02-02] MEDS ORDERED: CALCIUM CARBONATE 500 MG CHEW U/D PO PRN (13:50)
[2021-02-02 16:00] VITALS: BP 102/68
[2021-02-02 20:00] VITALS: BP 140/63
[2021-02-02] MEDS: PANTOPRAZOLE 40MG VIAL (C9113 PER 1) IV SCH (20:44)
[2021-02-03 04:03] VITALS: BP 133/67
[2021-02-03] MEDS: HEPARIN SOD (PORCINE) 5000UNITS/ML 1ML VIAL/SYRINGE SC SCH ×3 (05:27→21:10)
[2021-02-03 05:48] LABS: BASO % 0.4 % (0.0-1.0); EOS # 0.2 10^3/uL (0.0-0.5); EOS % 2.4 % (0.0-3.0); HEMATOCRIT 34.6 % (36.0-47.0); LYMPH % 19.7 % (24.0-44.0); MEAN CORPUSCULAR HEMOGLOBIN 29.7 pg (27.0-33.0); MEAN CORPUSCULAR HGB CONC 31.8 g/dl (32.0-36.5); MEAN CORPUSCULAR VOLUME 93.5 fl (80.0-96.0); MONO # 0.7 10^3/uL (0.0-0.8); MONO % 6.4 % (2.0-8.0); NEUTROPHILS # 7.2 10^3/uL (1.5-8.5); NEUTROPHILS % 70.8 % (36.0-66.0); PLATELET COUNT, AUTOMATED 203 10^3/uL (150-450); WHITE BLOOD COUNT 10.2 10^3/uL (4.0-10.0)
[2021-02-03 06:05] LABS: BLOOD UREA NITROGEN 14 MG/DL (7-18); CALCIUM LEVEL 9.2 MG/DL (8.8-10.2); CARBON DIOXIDE LEVEL 27 MEQ/L (21-32); CHLORIDE LEVEL 111 MEQ/L (98-107); GLOMERULAR FILTRATION RATE > 60.0 (>32); GLUCOSE, FASTING 96 MG/DL (70-100); MAGNESIUM LEVEL 1.9 MG/DL (1.8-2.4); POTASSIUM SERUM 3.3 MEQ/L (3.5-5.1); SODIUM LEVEL 143 MEQ/L (136-145)
[2021-02-03] MEDS ORDERED: POTASSIUM CHLORIDE 10 MEQ SR TABLET PO ONE (07:15)
[2021-02-03] MEDS: PANTOPRAZOLE 40MG TAB (PROTONIX) PO SCH (09:27)
[2021-02-03] MEDS: HYDROcodone/APAP LIQUID 7.5-325MG 15ML UDC (LORTAB ELIXIR) PO SCH ×2 (09:29→21:09)
[2021-02-03] MEDS: VERAPAMIL 180MG EXTENDED RELEASE TABLET PO SCH (09:30)
--- NOTE | 2021-02-03 11:12 | IPNPDOC ---
Text Note Date of Service The patient was seen on 02/03/21. NOTE Subjective: Patient seen and examined at bedside. No acute overnight events reported. Patient voices no new medical complaints this morning. Objective: General: NAD, lying comfortably in bed, elderly HEENT: NC/AT, EOMI Lungs: CTA B/L Heart: +S1S2, RRR Abd: soft, NT, +BS Ext: no edema Assessment and Plan: 85-year-old female who presented to the emergency room with complaints of abdominal pain. She reported right lower quadrant abdominal pain for two days, rated as 5-6/10, aggravated with movement and touch, no alleviation with hydrocodone which she uses for her back pain. Mild relief with heating pad. #Abdominal pain - improving - possibly 2/2 inguinal hernia, less likely 2/2 pancreatitis, less likely 2/2 gall bladder etiology - Physical reveals tenderness of right lower and upper quadrant - Mild leukocytosis - Imaging noted above - Will check blood cultures, pro-calcitonin - surgery c/s pending - advancing diet as tolerated #Urinary retention - possibly 2/2 abdominal pain / SBO? - Patient had a Zuleta catheter placed in the emergency room after bladder scans had revealed 500 mL of urine despite 300 mL of urine production - Hemodynamically stable and afebrile - UA without any evidence of infection - Will hold off on antibiotic therapy at this time #HTN - BP appears to be elevated; possibly secondary to pain - c/w Verapamil with holding parameters #Chronic COPD - No evidence of exacerbation - Patient does not use any inhalers as an outpatient #IBS #Osteopenia - c/w Vitamin D supplementation - c/w Fall precautions #Migraine headaches - c/w Tylenol PRN #Chronic lower back pain 2/2 degenerative disk disease / osteoporosis - Will replace Hydrocodone with Morphine while NPO #Patient had reported firmness of R breast - She reports that she has not yet had a mammogram in several years - Patient has been advised to get a mammogram as soon as possible - Will have outpatient follow-up with primary care provider for screening mamm ogram #GERD - Will start Protonix #DVT prophylaxis - Heparin Code status: - Patient is DNR / DNI Dispo: advancing diet, PT/OT, surgery c/s pending VS,Fishbone, I+O VS, Fishbone, I+O Laboratory Tests 02/03/21 05:01 Vital Signs Date Time Temp Pulse Resp B/P (MAP) Pulse Ox O2 Delivery O2 Flow Rate FiO2 02/03/21 10:25 18 Room Air 02/03/21 09:30 87 137/83 02/03/21 04:03 97.5 98 I&O- Last 24 Hours up to 6 AM 02/03/21 06:00 Intake Total 1085 ml Output Total 425 ml Balance 660 ml FERNANDO VASQUEZ MD Feb 03, 2021 11:12
[2021-02-03 22:00] VITALS: BP 149/73
[2021-02-04 06:00] VITALS: BP 136/76
[2021-02-04] MEDS: HEPARIN SOD (PORCINE) 5000UNITS/ML 1ML VIAL/SYRINGE SC SCH ×2 (06:09→14:00)
[2021-02-04 07:35] LABS: BASO # 0.1 10^3/uL (0.0-0.2); BASO % 0.6 % (0.0-1.0); EOS # 0.3 10^3/uL (0.0-0.5); EOS % 2.5 % (0.0-3.0); HEMATOCRIT 38.8 % (36.0-47.0); HEMOGLOBIN 12.4 g/dl (12.0-15.5); LYMPH # 2.5 10^3/uL (1.5-5.0); LYMPH % 23.6 % (24.0-44.0); MEAN CORPUSCULAR HEMOGLOBIN 30.2 pg (27.0-33.0); MEAN CORPUSCULAR VOLUME 94.4 fl (80.0-96.0); MONO # 0.6 10^3/uL (0.0-0.8); NEUTROPHILS # 7.2 10^3/uL (1.5-8.5); PLATELET COUNT, AUTOMATED 219 10^3/uL (150-450); RED BLOOD COUNT 4.11 10^6/uL (4.00-5.40); WHITE BLOOD COUNT 10.7 10^3/uL (4.0-10.0)
[2021-02-04 08:07] LABS: BLOOD UREA NITROGEN 14 MG/DL (7-18); CALCIUM LEVEL 8.9 MG/DL (8.8-10.2); CARBON DIOXIDE LEVEL 29 MEQ/L (21-32); CHLORIDE LEVEL 112 MEQ/L (98-107); CREATININE FOR GFR 0.85 MG/DL (0.55-1.30); GLOMERULAR FILTRATION RATE > 60.0 (>32); GLUCOSE, FASTING 78 MG/DL (70-100); MAGNESIUM LEVEL 1.8 MG/DL (1.8-2.4); POTASSIUM SERUM 4.1 MEQ/L (3.5-5.1); SODIUM LEVEL 146 MEQ/L (136-145)
[2021-02-04] MEDS: HYDROcodone/APAP LIQUID 7.5-325MG 15ML UDC (LORTAB ELIXIR) PO SCH (08:31)
[2021-02-04] MEDS: PANTOPRAZOLE 40MG TAB (PROTONIX) PO SCH (08:31)
[2021-02-04 08:34] VITALS: BP 154/79
[2021-02-04] MEDS: VERAPAMIL 180MG EXTENDED RELEASE TABLET PO SCH (08:34)
[2021-02-04 11:49] VITALS: BP 122/80
--- NOTE | 2021-02-04 12:55 | REPVR ---
PROCEDURE INFORMATION: Exam: MR Lumbar Spine Without Contrast Exam date and time: 02/04/2021 12:42 PM Age: 85 years old Clinical indication: Low back pain; Additional info: Back pain, rectal pain TECHNIQUE: Imaging protocol: Multiplanar magnetic resonance images of the lumbar spine without intravenous contrast. COMPARISON: [facility] SPINE LUMBOSACRAL PARTIAL 03/22/2020 9:10 AM FINDINGS: Vertebrae: There is 3 mm of grade 1 retrolisthesis of L3 with respect to L4. Normal vertebral body alignment is otherwise preserved. Vertebral body heights are within normal limits. There is severe intervertebral disc space loss at L3/4 and L5/S1. Spinal cord: Normal signal. No cord compression. L1-L2: No significant disc disease. No significant spinal canal stenosis. No neural foraminal stenosis. There is a left perineural cyst. L2-L3: There is shallow disc bulging. There is mild facet hypertrophy. There is mild bilateral neural foraminal narrowing. There are bilateral perineural cysts. L3-L4: There is diffuse disc bulging/uncovering related to listhesis. There is moderate facet and ligamentous hypertrophy. There is moderate right neural foraminal narrowing. L4-L5: There is diffuse disc bulging. There is severe facet hypertrophy asymmetric to the right. There is mild right and moderate left neural foraminal narrowing. L5-S1: There is shallow disc bulging. There is moderate facet hypertrophy. There is mild right and moderate to severe left neural foraminal narrowing. Other: Right renal cysts are seen to better advantage on concurrent CT abdomen/pelvis examination reported separately. Soft tissues: Unremarkable. IMPRESSION: Degenerative disc disease and spondylosis. At L5/S1, there is moderate to severe left neural foraminal narrowing. Electronically signed by: Sayda Chaney On 02/04/2021 12:54:44 PM
[2021-02-04 14:00] VITALS: BP 132/63
--- NOTE | 2021-02-15 11:28 | DS.PDOC ---
Discharge Summary General Date of Admission Jan 31, 2021 at 17:27 Date of Discharge 02/04/21 Discharge Summary PROCEDURES PERFORMED DURING STAY: [None]. ADMITTING DIAGNOSES: #abdominal pain #urinary retention DISCHARGE DIAGNOSES: HTN COPD IBS Osteopenia Migraine headaches Chronic lower back pain 2/2 degenerative disk disease / osteoporosis GERD COMPLICATIONS/CHIEF COMPLAINT: Abdominal Pain. HISTORY OF PRESENT ILLNESS: Patient is an 85-year-old female who presented to the emergency room with complaints of abdominal pain. She reports that she is experiencing right lower quadrant abdominal pain that started yesterday morning and into today. Patient reports the pain as a 5-6/10, aggravated with movement and touch, no alleviation with hydrocodone which she uses for her back pain. Mild relief with heating pad. Reports that she did have 2 bowel movements this morning that were regular without any evidence of blood. She denies any urinary discomfort, but does report burning of her rectum. Patient denies any chest pain, shortness of breath, or palpitations. Patient has reported a mild cough has not changed significantly. She denies any fevers or chills. Patient reports her appetite is relatively poor but is unsure of any changes in her weight. HOSPITAL COURSE: 85-year-old female who presented to the emergency room with complaints of abdominal pain. She reported right lower quadrant abdominal pain for two days, rated as 5-6/10, aggravated with movement and touch, no alleviation with hydrocodone which she uses for her back pain. Mild relief with heating pad. #Abdominal pain - improving - possibly 2/2 inguinal hernia - Physical reveals tenderness of right lower and upper quadrant - Mild leukocytosis - Imaging noted above - surgery c/s appreciated - no further intervention - tolerating diet #Urinary retention - possibly 2/2 abdominal pain / SBO? - Patient had a Zuleta catheter placed in the emergency room after bladder scans had revealed 500 mL of urine despite 300 mL of urine production - UA without any evidence of infection - Will hold off on antibiotic therapy at this time #HTN - BP appears to be elevated; possibly secondary to pain - c/w Verapamil with holding parameters #Chronic COPD - No evidence of exacerbation - Patient does not use any inhalers as an outpatient #IBS #Osteopenia - c/w Vitamin D supplementation - c/w Fall precautions #Migraine headaches - c/w Tylenol PRN #Chronic lower back pain 2/2 degenerative disk disease / osteoporosis - Will replace Hydrocodone with Morphine while NPO #Patient had reported firmness of R breast - She reports that she has not yet had a mammogram in several years - Patient has been advised to get a mammogram as soon as possible - Will have outpatient follow-up with primary care provider for screening mammogram #GERD - Protonix #DVT prophylaxis - Heparin Code status: - Patient is DNR / DNI DISCHARGE MEDICATIONS: Please see below. ALLERGIES: Please see below. PHYSICAL EXAMINATION ON DISCHARGE: VITAL SIGNS: Please see below. General: NAD, lying comfortably in bed, elderly HEENT: NC/AT, EOMI Lungs: CTA B/L Heart: +S1S2, RRR Abd: soft, NT, +BS Ext: no edema LABORATORY DATA: Please see below. ACTIVITY: [As tolerated]. DISPOSITION: Home Health Service. DISCHARGE INSTRUCTIONS: 1. Follow up PCP In 3-5 days. DISCHARGE CONDITION: [Stable]. TIME SPENT ON DISCHARGE: 35 minutes. Discharge Medications Scheduled Ascorbate Calcium (Vitamin C) 500 Mg Tablet, 500 MG PO DAILY, (Reported) TAKES AT NOON Calcium Carbonate/Vitamin D3 (Calcium 600 + Vit D 400 Softgl) 1 Each Capsule, 1 CAP PO DAILY, (Reported) TAKES AT NOON Cholecalciferol (Vitamin D3) (Vitamin D3) 1,000 Unit Tablet, 1,000 UNITS PO DAILY, (Reported) TAKES AT NOON Hydrocodone/Acetaminophen (Hydrocodone-Acetamin 7.5-300) 1 Each Tablet, 1 TAB PO BID, (Reported) Multivit-Min/FA/Lycopen/Lutein (Sentry Senior Tablet) 1 Tab Tab, 1 TAB PO DAILY, (Reported) TAKES AT NOON Polyethylene Glycol 3350 (Miralax) 1 Pow Pow, 8.5 GM PO DAILY, (Reported) Propylene Glycol/Peg 400 (Systane 0.3-0.4% Eye Drops) 15 Ml Drops, 1 DROP OU BID, (Reported) Verapamil HCl (Verapamil ER) 180 Mg Cap, 180 MG PO DAILY, (Reported) Scheduled PRN Hyoscyamine Sulfate (Hyoscyamine Sulfate) 0.125 Mg Tab.subl, 0.125 MG SL Q4H PRN for ABDOMINAL PAIN, (Reported) Mometasone Furoate (Mometasone Furoate) 17 Gm [place].pump, 2 SPRAYS NARES BID PRN for ALLERGIES, (Reported) Allergies Coded Allergies: Penicillins (Verified Allergy, Intermediate, HIVES, 01/31/21) clindamycin (Verified Allergy, Intermediate, 01/31/21) Quinolones (Verified Allergy, Unknown, TEQUIN AND CIPRO, 01/31/21) cefdinir (Verified Allergy, Unknown, 01/31/21) sodium benzoate (Verified Allergy, Unknown, FROM OMNICEF, 01/31/21) topiramate (Verified Allergy, Unknown, 01/31/21) celecoxib (Verified Adverse Reaction, Intermediate, CAUSED ANEMIA, 01/31/21) tramadol (Verified Adverse Reaction, Intermediate, 01/31/21) Cephalosporins (Verified Adverse Reaction, Mild, DIARRHEA, 01/31/21) Estrogens (Verified Adverse Reaction, Mild, VAGINAL DISCHARGE, 01/31/21) clarithromycin (Verified Adverse Reaction, Mild, ABDOMINAL PAIN, 01/31/21) metronidazole (Verified Adverse Reaction, Mild, PASS OUT, 01/31/21) FERNANDO VASQUEZ MD February 15, 2021 11:28
== END 2021-02-04 15:35 | disposition home health service (06) | DRG 395 ==
LOC: EDBD 12:10 → M ED 12:10 → M ED INP 17:27 → ENRESERV 18:59 → M PCU 20:35 → M MSPAV 02-03 07:29
PROVIDERS: ADMIT Internal Medicine; ATTEND Internal Medicine
DX: K40.90 Unilateral inguinal hernia, without obstruction or gangrene, not specified as recurrent (principal); I10 Essential (primary) hypertension; J44.9 Chronic obstructive pulmonary disease, unspecified; K58.9 Irritable bowel syndrome, unspecified; M85.80 Other specified disorders of bone density and structure, unspecified site; G43.909 Migraine, unspecified, not intractable, without status migrainosus; M51.36 Other intervertebral disc degeneration, lumbar region; K21.9 Gastro-esophageal reflux disease without esophagitis; Z98.49 Cataract extraction status, unspecified eye; Z85.828 Personal history of other malignant neoplasm of skin; D72.829 Elevated white blood cell count, unspecified; R33.9 Retention of urine, unspecified; M81.0 Age-related osteoporosis without current pathological fracture; Z66 Do not resuscitate; Z79.899 Other long term (current) drug therapy; Z88.0 Allergy status to penicillin; Z88.1 Allergy status to other antibiotic agents; Z88.8 Allergy status to other drugs, medicaments and biological substances; Z20.822 Contact with and (suspected) exposure to COVID-19

== ENCOUNTER → 2021-02-21 | Outpatient (CLI) | payer MEDICARE, OTHER ==
[~2021-02-21] MED LIST changes: +BACT400T PO; +CALC500T38 PO; +CALCCAP4 PO; +D31000TA2 PO; +HYDR-4431 PO; +HYOS125TA SL; +MIRT-62 PO; +MIRT1TAB15; +MOME50SP2 NARES; +SYST1SOL4 OU; +VERA180T3 PO
--- NOTE | 2021-02-21 15:54 | REP ---
INDICATION: JUNIOR DIAG MAMMO/N63.10/R BREAST MASS; N63.10 RIGHT BREAST MASS. COMPARISON: Mammography is from 21 August 2008 at [facility]. TECHNIQUE: A skin marker is affixed to the skin at the site of the palpable lump in the right breast. Routine views of the right breast are augmented by magnified focal spot-compression images. 3D tomography is carried out bilaterally. Routine views of the left breast are performed. Targeted right breast sonography is carried out. FINDINGS: Breast parenchyma is heterogeneously dense in a pattern which may inhibit the sensitivity of mammography. Vascular calcification is observed bilaterally. There are scattered benign calcifications on the left. There is a stable normal appearing intramammary lymph node in the upper-outer quadrant of each breast. No suspicious abnormality is noted mammographically on the left. In the right breast at site of the palpable lump at approximately the 6 o'clock position there is an irregular spiculated mass measuring 3.3 x 2.4 x 2.9 cm in greatest diameter. This contains a few scattered calcifications. Is so C8 with mild diffuse stromal thickening and diffuse dermal thickening as well as apparent nipple retraction. This is highly suspicious. It is felt to correspond with the site of the palpable lump. The Volpara volumetric breast density pattern is C. Targeted right breast sonography: Scanning at site of the palpable lump demonstrates a hypoechoic irregular spiculated mass with sonographic dimensions of 4.4 x 2.4 x 2.2 cm. This appeared sonographically in the 4 o'clock position. No other sonographic findings.. IMPRESSION: BI-RADS category 5 highly suspicious right breast mammographic and sonographic imaging. Histologic sampling recommended. This mammogram was interpreted with the aid of an FDA-approved computer-aided detection system. The patient states she had a clinical breast exam in February 11, 2021. The patient letter being requested is M4. RECOMMENDATION: Ultrasound-guided needle biopsy with marker clip placement and post clip placement mammography recommended right breast mass.. <Electronically signed by Jovan Pedroza > 02/21/21 [id number]
== END ==
LOC: M WHC 13:57
PROVIDERS: ATTEND Family Medicine
DX: N63.15 Unspecified lump in the right breast, overlapping quadrants (principal)
CPT/HCPCS: 76642; 77066; G0279

== ENCOUNTER → 2021-02-25 | Outpatient (REF) | payer MEDICARE, OTHER ==
[~2021-02-25] MED LIST changes: -BACT400T PO; -MIRT-62 PO; -MIRT1TAB15; -SYST1SOL4 OU; -VERA180T3 PO
== END ==
LOC: M SFHCCLAY 15:54
PROVIDERS: ATTEND Family Medicine
DX: R82.90 Unspecified abnormal findings in urine (principal)

== ENCOUNTER → 2021-03-02 | Outpatient (CLI) | payer MEDICARE, OTHER ==
[~2021-03-02] MED LIST changes: +AUGM0.0534; +AZIT-12 PO; +BACT400T PO; +CALC315T2 PO; +EQ S0.65 NARES; +LETR2.5T2 PO; +MIRT-62 PO; +MIRT1TAB15; +PHEN26CR PR; +RA S0.65 NARES; +SALA1TAB PO; +SYST1SOL4 OU; +VERA180T3 PO; +VITA-243 PO
[2021-03-02 16:09] VITALS: BP 114/66
--- NOTE | 2021-03-02 16:25 | REP ---
INDICATION: LT NECK PALPABLE LYMPH NODE COMPARISON: None. TECHNIQUE: German scale and color evaluation using linear high-frequency transducer. FINDINGS: Ultrasound examination at the site of palpable mass overlying the left lateral neck corresponds to a 9.3 x 4.4 x 3.9 mm lymph node. Incidental atherosclerotic changes to the visualized carotid artery noted. IMPRESSION: Palpable mass corresponds to normal cervical lymph node. <Electronically signed by Brendan Cortez > 03/02/21 [id number]
--- NOTE | 2021-03-02 16:29 | REP ---
INDICATION: RT PALABLE LYMPH NODE COMPARISON: None TECHNIQUE: Realtime grayscale ultrasound examination using linear high-frequency transducer. FINDINGS: Directed ultrasound examination overlying the palpable mass in the right axillary region demonstrates lymph nodes measuring up to 16 x 9 x 11 mm with normal central fatty max. IMPRESSION: Palpable mass corresponds to axillary lymph nodes. <Electronically signed by Brendan Cortez > 03/02/21 [id number]
--- NOTE | 2021-03-02 18:39 | REP ---
INDICATION: N63.10 RT BREAST MASS,US GUIDED BIOPSY. COMPARISON: None. TECHNIQUE: Sonographic guidance. FINDINGS: Ultrasound guidance is provided to Dr. Crow performed needle biopsy of right breast mass. IMPRESSION: Sonographic guidance. <Electronically signed by Jovan Pedroza > 03/02/21 [id number]
--- NOTE | 2021-03-12 11:39 | ROOPDOC ---
[facility] Report Of Operation Report of Operation DATE OF PROCEDURE:03/02/21 DIAGNOSIS: right breast suspicious mass and suspicious skin lesion of right breast PROCEDURE: ultrasound guided biopsy of the right breast suspicious mass with clip placement and punch biopsy of the right breast suspicious skin lesion SURGEON: Kassie Everett BLOOD LOSS: minimal COMPLICATIONS: none Lidocaine 1% LOT [id number] Expiration 04/2024 Sodium Bicarbonate 8.4% LOT [id number] Expiration 11/2021 Hydromark clip [id number] Expiration 09/2023 SHAPE : 4 Bx device: BARD [id number] x10 cm LOT [id number] Expiration 11/2023 PUNCH BIOPSY DEVICE : 4mm Informed consent was obtained. The most common risk and possible complications including bleeding, hematoma, bruising, infection, injury to surrounding structures were explained to the patient and the patient expressed understanding. Patient was placed on the bed in the supine position. Appropriate time out was done stating patients name, date of , and the procedure to be performed. The right breast was prepped and draped in the usual fashion. The ultrasound was used to confirm the location of the lesion in the right retroareolar region. The suspicious skin lesion is located at 3:00 3 CFN. Procedure was started with the breast mass biopsy. Plain Lidocaine 1% and 8.4% sodium bicarbonate 10:1 mix was used to anesthetize the skin, the biopsy site and tissues along the anticipated biopsy tract. Small skin incision was made with blade number 11. BARD Marquee 14G cannula with introducer ([id number]) was inserted through the incision and advanced under the ultrasound guidance to position immediately adjacent to the lesion. Next, the introducer was removed and BARD Marquee 14G biopsy device was places in the cannula. Pre-biopsy imaging, and post-biopsy imaging were captured. Three good core biopsies were taken at various levels of the lesion. No additional cores were taken due to reported patients pain. Specimen was placed in formaldehyde, labeled with appropriate biopsy site and patients name, and sent to pathology for evaluation. Next, the biopsy device was withdrawn and a clip introducer was inserted into the biopsy site via the cannula. SHAPE 4 Hydromark clip was deployed under sonog raphic guidance. Post-clip placement image was captured. Manual pressure over the biopsy cavity and tract was held after the clip introducer was withdrawn. No bleeding was noted upon removal of the pressure. At this time, our attention was turned toward the suspicious skin lesion located at 3:00 3 CFN in the right breast. Plain Lidocaine 1% and 8.4% sodium bicarbonate 10:1 mix was used to anesthetize the skin and deeper tissue at the rite of planned punch biopsy. 4mm punch biopsy device was used to take a sample at the site of suspicious skin changes. Specimen was placed in formaldehyde, labeled with appropriate biopsy site and patients name, and sent to pathology for evaluation. The skin defect was closed with chromic suture. Steri strips were placed over the site at the end of the procedure. Postprocedural dressing was placed. Patient tolerated procedure well. Discharge instructions were discussed with the patient and the patient expressed understanding. KASSIE EVERETT DO Mar 12, 2021 11:39
== END ==
LOC: M WHCPRO 06:41
PROVIDERS: ATTEND Surgery
DX: C50.911 Malignant neoplasm of unspecified site of right female breast (principal); N63.21 Unspecified lump in the left breast, upper outer quadrant; D48.1 Neoplasm of uncertain behavior of connective and other soft tissue

== ENCOUNTER 2021-03-04 11:01 | Inpatient (IN) | payer MEDICARE, OTHER ==
[~2021-03-04] VITALS: Ht 152.4 cm; Wt 36.3 kg
[~2021-03-04 11:01] MED LIST changes: -AUGM0.0534; -AZIT-12 PO; -CALC315T2 PO; -EQ S0.65 NARES; -LETR2.5T2 PO; -MIRT-62 PO; -MIRT1TAB15; -PHEN26CR PR; -RA S0.65 NARES; -SALA1TAB PO; -SYST1SOL4 OU; -VERA180T3 PO; -VITA-243 PO
[2021-03-04] MEDS ORDERED: MIRT1TAB15 (11:16)
[2021-03-04 12:13] LABS: BASO % 0.4 % (0.0-1.0); EOS # 0.1 10^3/uL (0.0-0.5); EOS % 0.8 % (0.0-3.0); HEMATOCRIT 46.9 % (36.0-47.0); HEMOGLOBIN 15.2 g/dl (12.0-15.5); LYMPH # 1.1 10^3/uL (1.5-5.0); LYMPH % 9.5 % (24.0-44.0); MEAN CORPUSCULAR HEMOGLOBIN 30.4 pg (27.0-33.0); MEAN CORPUSCULAR HGB CONC 32.4 g/dl (32.0-36.5); MEAN CORPUSCULAR VOLUME 93.8 fl (80.0-96.0); MONO # 0.5 10^3/uL (0.0-0.8); MONO % 4.2 % (2.0-8.0); NEUTROPHILS # 9.6 10^3/uL (1.5-8.5); NEUTROPHILS % 84.7 % (36.0-66.0); PLATELET COUNT, AUTOMATED 237 10^3/uL (150-450); WHITE BLOOD COUNT 11.3 10^3/uL (4.0-10.0)
--- NOTE | 2021-03-04 12:44 | REP ---
INDICATION: weakness COMPARISON: 09/14/2017 TECHNIQUE: Portable AP view of the chest FINDINGS: The mediastinum and cardiac silhouette are stable and within normal limits for portable technique. The lung coughlin demonstrate stable chronic COPD/emphysematous changes without acute consolidation, effusion, or pneumothorax. Skeletal structures are intact. IMPRESSION: No acute cardiopulmonary process appreciated. <Electronically signed by Brendan Cortez > 03/04/21 [id number]
[2021-03-04 13:00] LABS: ALBUMIN 3.7 GM/DL (3.2-5.2); ALT/SGPT 24 U/L (12-78); BILIRUBIN,DIRECT < 0.1 MG/DL (0.0-0.2); BILIRUBIN,TOTAL 0.4 MG/DL (0.2-1.0); BLOOD UREA NITROGEN 30 MG/DL (7-18); CALCIUM LEVEL 11.4 MG/DL (8.8-10.2); CARBON DIOXIDE LEVEL 24 MEQ/L (21-32); CHLORIDE LEVEL 108 MEQ/L (98-107); CK-MB VALUE MASS 1.1 NG/ML (<3.6); CPK CREATINE PHOSPHOKINASE 110 U/L (26-192); CREATININE FOR GFR 1.42 MG/DL (0.55-1.30); GLOMERULAR FILTRATION RATE 37.3 (>32); GLUCOSE, FASTING 107 MG/DL (70-100); POTASSIUM SERUM 5.9 MEQ/L (3.5-5.1); SODIUM LEVEL 139 MEQ/L (136-145); TOTAL PROTEIN 7.7 GM/DL (6.4-8.2); TROPONIN I < 0.02 NG/ML (< 0.10)
[2021-03-04] MEDS ORDERED: NS 500 ML IV ONE (13:40)
[2021-03-04] MEDS: NS 1,000 ML IV SCH (17:04)
[2021-03-04 17:38] LABS: RSV AMPLIFICATION NEGATIVE (NEGATIVE)
[2021-03-04] MEDS ORDERED: MIRT-62 PO (18:15)
[2021-03-04] MEDS ORDERED: HYOSCYAMINE SULFATE 0.125 MG SUBL TABLET SL PRN (18:55)
--- NOTE | 2021-03-04 19:16 | HPEPDOC ---
General Date of Admission 03/04/21 Date of Service: March 04, 2021 Chief Complaint The patient is a 85-year-old female admitted with a reason for visit of Generalized Weakness. Source: Patient, RN/MD History of Present Illness 85-year-old female who lives alone with past medical history of recently found to have rice to breast mass which was biopsied yesterday ,COPD, tension headaches hypertension, COPD, IBS, osteoporosis, GERD, low back pain and lumbar radiculopathy,Squamous cell carcinoma of skin, right inguinal hernia was recently hospitalized from 01/31/2021 2 02/04/2021 for abdominal pain which was attributed to inguinal hernia with possible partial small bowel obstruction and urinary retention presented to the emergency room for generalized weakness, poor appetite. Patient was recently seen by primary care provider on 02/24/2021 and was felt to have a urinary tract infection. She was prescribed Bactrim. Workup in the emergency room showed an elevated creatinine at 1.49 and an elevated potassium at 5.9, calcium 11.4, hemoglobin 15.2. Patient was admitted for dehydration KASIA, and hyperkalemia. Patient reports that this morning she want workup and then she stood up she was very dizzy and almost passed out. She went back to bed and then gradually woke s tood up again and try to go to the kitchen to get her coffee. However, she was very weak and dizzy and could not make it so called ambulance. Patient reports that she has been losing weight steadily over the past 6 months but it has really become worse in the last 1 month. Patient reports that she fixes her food, however, then she doesn't want to eat and eat nothing tastes good. Home Medications Scheduled Ascorbate Calcium (Vitamin C) 500 Mg Tablet, 500 MG PO DAILY, (Reported) TAKES AT NOON Calcium Carbonate/Vitamin D3 (Calcium 600 + Vit D 400 Softgl) 1 Each Capsule, 1 CAP PO DAILY, (Reported) TAKES AT NOON Hydrocodone/Acetaminophen (Hydrocodone-Acetamin 7.5-300) 1 Each Tablet, 1 TAB PO BID, (Reported) Mirtazapine (Remeron) 15 Mg Tablet, 15 MG PO QHS, (Reported) Multivit-Min/FA/Lycopen/Lutein (Sentry Senior Tablet) 1 Tab Tab, 1 TAB PO DAILY, (Reported) TAKES AT NOON Polyethylene Glycol 3350 (Miralax) 1 Pow Pow, 8.5 GM PO DAILY, (Reported) Verapamil HCl (Verapamil ER) 180 Mg Cap, 180 MG PO DAILY, (Reported) Scheduled PRN Hyoscyamine Sulfate (Hyoscyamine Sulfate) 0.125 Mg Tab.subl, 0.125 MG SL Q4H PRN for ABDOMINAL PAIN, (Reported) Mometasone Furoate (Mometasone Furoate) 17 Gm [place].pump, 2 SPRAYS NARES BID PRN for ALLERGIES, (Reported) Allergies Coded Allergies: Penicillins (Verified Allergy, Intermediate, HIVES, 01/31/21) clindamycin (Verified Allergy, Intermediate, 01/31/21) Quinolones (Verified Allergy, Unknown, TEQUIN AND CIPRO, 01/31/21) cefdinir (Verified Allergy, Unknown, 01/31/21) sodium benzoate (Verified Allergy, Unknown, FROM OMNICEF, 01/31/21) topiramate (Verified Allergy, Unknown, 01/31/21) celecoxib (Verified Adverse Reaction, Intermediate, CAUSED ANEMIA, 01/31/21) tramadol (Verified Adverse Reaction, Intermediate, 01/31/21) Cephalosporins (Verified Adverse Reaction, Mild, DIARRHEA, 01/31/21) Estrogens (Verified Adverse Reaction, Mild, VAGINAL DISCHARGE, 01/31/21) clarithromycin (Verified Adverse Reaction, Mild, ABDOMINAL PAIN, 01/31/21) metronidazole (Verified Adverse Reaction, Mild, PASS OUT, 01/31/21) Past Medical History Medical History Right Breast mass with axillary lymph nodes was biopsied ,Tension headaches, hypertension, COPD, IBS, osteoporosis, GERD, low back pain and lumbar radiculopathy. Squamous cell carcinoma of skin, right inguinal hernia with a loop of small bowel in it Surgical History Right Breast biopsy 03/03/2021 Dilation and curettage 1979 Sinus surgery 2003 Bilateral oophorectomy 2006 Uterus and bladder suspension 2008 Cataract removal 2017 Left shoulder squamous cell carcinoma resection 2018 Family History FATHER: MOTHER: 1 BROTHER(S) . 1 SON(S) , 1 DAUGHTER(S) - HEALTHY. Social History * Smoker: former Smoker Alcohol: Denies Drugs: denies A-FIB/CHADSVASC A-FIB History Current/History of A-Fib/PAF?: No Review of Systems Constitutional: Reports: Weakness, Weight Loss; Denies: Chills, Fever, Night Sweats Eyes: Denies: Pain, Vision change ENT: Denies: Head Aches, Ear Pain, Dysphagia Skin: Denies: Rash, Lesions, Breakdown Pulmonary: Denies: Dyspnea, Cough Cardiovascular: Denies: Chest Pain, Palpitations, Orthopnea, Paroxysmal Noc. Dyspnea, Lt Headedness Gastrointestinal: Reports: Constipation; Denies: Nausea, Vomiting, Abdominal Pain Hematologic: Denies: Bruising, Bleeding Excessively Musculoskeletal: Reports: Back Pain Neurological: Reports: Weakness Physical Examination General Exam: Positive: Alert, Cooperative, No Acute Distress Eye Exam: Positive: PERRLA, Conjunctiva & lids normal, EOMI; Negative: Sclera icteric ENT Exam: Positive: Atraumatic, Mucous membr. moist/pink, Pharynx Normal Neck Exam: Positive: Supple; Negative: JVD, thyromegaly Chest Exam: Positive: Clear to auscultation, Normal air movement, Other (right breast hard mass just below the nipple area) Heart Exam: Positive: Rate Normal, Regular Rhythm, Normal S1, Normal S2; Negative: Murmurs, Rubs Abdomen Exam: Positive: Normal bowel sounds, Soft; Negative: Tenderness Extremity Exam: Negative: Clubbing, Cyanosis, Edema Vital Signs Vital Signs Date Time Temp Pulse Resp B/P (MAP) Pulse Ox O2 Delivery O2 Flow Rate FiO2 03/04/21 17:01 81 72 03/04/21 17:00 160/82 (108) 03/04/21 14:46 16 Room Air 03/04/21 11:22 97.5 Laboratory Data Labs 24H Laboratory Tests 2 03/04/21 12:01: Immature Granulocyte % (Auto) 0.4, Neutrophils (%) (Auto) 84.7H, Lymphocytes (%) (Auto) 9.5L, Monocytes (%) (Auto) 4.2, Eosinophils (%) (Auto) 0.8, Basophils (%) (Auto) 0.4, Neutrophils # (Auto) 9.6H, Lymphocytes # (Auto) 1.1L, Monocytes # (Auto) 0.5, Eosinophils # (Auto) 0.1, Basophils # (Auto) 0.0, Nucleated Red Blood Cells % (auto) 0.0, Anion Gap 7L, Glomerular Filtration Rate 37.3, Calcium Level 11.4H, Total Bilirubin 0.4, Direct Bilirubin < 0.1, Aspartate Amino Transf (AST/SGOT) 50H, Alanine Aminotransferase (ALT/SGPT) 24, Alkaline Phosphatase 92, Total Creatine Kinase 110, Creatine Kinase MB 1.1, Creatine Kinase MB Relative Index 1.00, Troponin I < 0.02, Total Protein 7.7, Albumin 3.7, Albumin/Globulin Ratio 0.9L, Thyroid Stimulating Hormone (TSH) 2.490 03/04/21 12:04: Bedside Glucose (Misc Panel) 99 03/04/21 16:31: Coronavirus (COVID-19)(PCR) NEGATIVE, Influenza Type A (RT-PCR) NEGATIVE, Influenza Type B (RT-PCR) NEGATIVE, Respiratory Syncytial Virus (PCR) NEGATIVE 03/04/21 16:44: Urine Color YELLOW, Urine Appearance CLEAR, Urine pH 6.0, Urine Specific [place] 1.012, Urine Protein NEGATIVE, Urine Glucose (UA) NEGATIVE, Urine Ketones TRACEH, Urine Blood NEGATIVE, Urine Nitrite NEGATIVE, Urine Bilirubin NEGATIVE, Urine Urobilinogen 0.2, Urine Leukocyte Esterase NEGATIVE, Urine WBC (Auto) 0, Urine RBC (Auto) 3, Urine Hyaline Casts (Auto) 0, Urine Bacteria (Auto) NEGATIVE, Urine Squamous Epithelial Cells 0, Urine Sperm (Auto) CBC/BMP Laboratory Tests 03/04/21 12:01 Assessment/Plan 85-year-old female who lives alone with past medical history of recently found to have rice to breast mass which was biopsied yesterday ,COPD, tension headaches hypertension, COPD, IBS, osteoporosis, GERD, low back pain and lumbar radiculopathy. Squamous cell carcinoma of skin, right inguinal hernia was recently hospitalized from 01/31/2021 2 02/04/2021 for abdominal pain which was attributed to acute urinary retention and a inguinal hernia with possible partial small bowel obstruction presented to the emergency room for generalized weakness, poor appetite. Patient was recently seen by primary care provider on 02/24/2021 and was felt to have a urinary tract infection. She was prescribed Bactrim. Workup in the emergency room showed an elevated creatinine at 1.49 and an elevated potassium at 5.9. Patient was admitted for dehydration KASIA, and hyperkalemia. Dehydration Suggested by hemoglobin of 15.2 which is much higher than her baseline of around 11 1 month ago Will give IV fluids Hyperkalemia Due to dehydration, KASIA and Bactrim Will give IV fluid Hypercalcemia Due to dehydration Will hold calcium supplements KASIA Prerenal, likely due to poor oral intake and Bactrim Will get bladder scan to rule out obstruction as she did have acute urinary retention during last admission IBS Continue hyoscyamine when necessary, and Jermyn Chronic constipation Likely due to opiates Will give bowel regimen Right-sided breast mass Likely malignant. , Biopsy results pending Plan / VTE VTE Prophylaxis Ordered?: Yes MADELYN MUSTAFA MD March 04, 2021 18:24
[2021-03-04 20:49] VITALS: BP 149/69
[2021-03-04] MEDS: SENOKOT S TAB PO SCH (22:30)
[2021-03-04] MEDS: MIRTAZAPINE 15 MG TAB PO SCH (22:30)
[2021-03-04] MEDS: PERCOCET 5MG/325MG TAB PO PRN (22:31)
[2021-03-05] MEDS: NS 1,000 ML IV SCH (01:04)
[2021-03-05 06:00] VITALS: BP 119/59
[2021-03-05 06:30] VITALS: BP_SYST 144; BP_SYST 147; BP_SYST 148; BP_DIAS 69; BP_DIAS 70
[2021-03-05 06:45] LABS: HEMATOCRIT 36.7 % (36.0-47.0); MEAN CORPUSCULAR HEMOGLOBIN 30.9 pg (27.0-33.0); MEAN CORPUSCULAR HGB CONC 32.7 g/dl (32.0-36.5); MEAN CORPUSCULAR VOLUME 94.6 fl (80.0-96.0); PLATELET COUNT, AUTOMATED 204 10^3/uL (150-450); RED BLOOD COUNT 3.88 10^6/uL (4.00-5.40); WHITE BLOOD COUNT 10.2 10^3/uL (4.0-10.0)
[2021-03-05 07:30] LABS: BLOOD UREA NITROGEN 24 MG/DL (7-18); CALCIUM LEVEL 9.1 MG/DL (8.8-10.2); CARBON DIOXIDE LEVEL 24 MEQ/L (21-32); CHLORIDE LEVEL 112 MEQ/L (98-107); CREATININE FOR GFR 0.91 MG/DL (0.55-1.30); GLOMERULAR FILTRATION RATE > 60.0 (>32); GLUCOSE, FASTING 84 MG/DL (70-100); POTASSIUM SERUM 4.1 MEQ/L (3.5-5.1); SODIUM LEVEL 144 MEQ/L (136-145)
--- NOTE | 2021-03-05 08:50 | ECGEPIP ---
[facility] - ED Test Date: 2021-03-04 Pat Name: KALA CURRAN Department: Room: - Gender: Female Pairer: mariebth : 1935 Requested By: Ekaterina Peterson Order Number: [id number] Reading MD: Ekaterina Peterson Measurements Intervals [place] Rate: 86 P: 82 ME: 154 QRS: -74 QRSD: 78 T: 74 QT: 366 QTc: 437 Interpretive Statements Normal sinus rhythm Possible Left atrial enlargement Left anterior fascicular block Anteroseptal infarct , age undetermined NSTTW abnormalities increased rate 01/31/21 Electronically Signed on 03-05-2021 8:49:45 EDT by Ekaterina Peterson
[2021-03-05] MEDS: MIRALAX *UNIT DOSE* 17GM PACKET PO SCH (08:51)
[2021-03-05] MEDS: SENOKOT S TAB PO SCH ×2 (08:51→20:05)
--- NOTE | 2021-03-05 09:28 | IPNPDOC ---
Subjective Date Seen The patient was seen on 03/05/21. Subjective Chief Complaint/HPI No dizziness or weakness this morning. Says she has a better appetite today. She had a good dinner last niht and believes she will be able to eat better today. No vomiting . no bowel movement. Objective Physical Examination General Exam: Positive: Alert, Cooperative, No Acute Distress Eye Exam: Positive: PERRLA, Conjunctiva & lids normal, EOMI; Negative: Sclera icteric ENT Exam: Positive: Atraumatic, Mucous membr. moist/pink, Pharynx Normal Neck Exam: Positive: Supple; Negative: JVD, thyromegaly Chest Exam: Positive: Clear to auscultation, Normal air movement, Other (right breast hard mass just below the nipple area) Heart Exam: Positive: Rate Normal, Regular Rhythm, Normal S1, Normal S2; Negative: Murmurs, Rubs Abdomen Exam: Positive: Normal bowel sounds, Soft; Negative: Tenderness Extremity Exam: Negative: Clubbing, Cyanosis, Edema Assessment /Plan Assessment 85-year-old female who lives alone with past medical history of recently found to have rice to breast mass which was biopsied yesterday ,COPD, tension headaches hypertension, COPD, IBS, osteoporosis, GERD, low back pain and lumbar radiculopathy. Squamous cell carcinoma of skin, right inguinal hernia was recently hospitalized from 01/31/2021 2 02/04/2021 for abdominal pain which was attributed to acute urinary retention and a inguinal hernia with possible partial small bowel obstruction presented to the emergency room for generalized weakness, poor appetite. Patient was recently seen by primary care provider on 02/24/2021 and was felt to have a urinary tract infection. She was prescribed Bactrim. Workup in the emergency room showed an elevated creatinine at 1.49 and an elevated potassium at 5.9. Patient was admitted for dehydration KASIA, and hyperkalemia. Dehydration Suggested by hemoglobin of 15.2 which is much higher than her baseline of around 11 1 month ago resolved with IVF. Hyperkalemia Due to dehydration, KASIA and Bactrim resolved Hypercalcemia Due to dehydration Will hold calcium supplements resolved KASIA Prerenal, likely due to poor oral intake and Bactrim resolved. Bladder scan did not show any post void residual. IBS Continue hyoscyamine when necessary, and Walker Chronic constipation Likely due to opiates Will give bowel regimen Right-sided breast mass Likely malignant. , Biopsy results pending Plan/VTE VTE Prophylaxis Ordered?: Yes VS, I&O, 24H, Fishbone Vital Signs/I&O Vital Signs Date Time Temp Pulse Resp B/P (MAP) Pulse Ox O2 Delivery O2 Flow Rate FiO2 03/05/21 06:30 75 148/70 (96) 80 147/70 (95) 79 144/69 (94) 03/05/21 06:00 98.0 17 94 Room Air I&O- Last 24 Hours up to 6 AM 03/05/21 06:00 Intake Total 2115 ml Output Total 430 ml Balance 1685 ml Laboratory Data 24H LABS Laboratory Tests 2 03/04/21 12:01: Immature Granulocyte % (Auto) 0.4, Neutrophils (%) (Auto) 84.7H, Lymphocytes (%) (Auto) 9.5L, Monocytes (%) (Auto) 4.2, Eosinophils (%) (Auto) 0.8, Basophils (%) (Auto) 0.4, Neutrophils # (Auto) 9.6H, Lymphocytes # (Auto) 1.1L, Monocytes # (Auto) 0.5, Eosinophils # (Auto) 0.1, Basophils # (Auto) 0.0, Nucleated Red Blood Cells % (auto) 0.0, Anion Gap 7L, Glomerular Filtration Rate 37.3, Calcium Level 11.4H, Total Bilirubin 0.4, Direct Bilirubin < 0.1, Aspartate Amino Transf (AST/SGOT) 50H, Alanine Aminotransferase (ALT/SGPT) 24, Alkaline Phosphatase 92, Total Creatine Kinase 110, Creatine Kinase MB 1.1, Creatine Kinase MB Relative Index 1.00, Troponin I < 0.02, Total Protein 7.7, Albumin 3.7, Albumin/Globulin Ratio 0.9L, Thyroid Stimulating Hormone (TSH) 2.490 03/04/21 12:04: Bedside Glucose (Misc Panel) 99 03/04/21 16:31: Coronavirus (COVID-19)(PCR) NEGATIVE, Influenza Type A (RT-PCR) NEGATIVE, I nfluenza Type B (RT-PCR) NEGATIVE, Respiratory Syncytial Virus (PCR) NEGATIVE 03/04/21 16:44: Urine Color YELLOW, Urine Appearance CLEAR, Urine pH 6.0, Urine Specific [place] 1.012, Urine Protein NEGATIVE, Urine Glucose (UA) NEGATIVE, Urine Ketones TRACEH, Urine Blood NEGATIVE, Urine Nitrite NEGATIVE, Urine Bilirubin NEGATIVE, Urine Urobilinogen 0.2, Urine Leukocyte Esterase NEGATIVE, Urine WBC (Auto) 0, Urine RBC (Auto) 3, Urine Hyaline Casts (Auto) 0, Urine Bacteria (Auto) NEGATIVE, Urine Squamous Epithelial Cells 0, Urine Sperm (Auto) 03/05/21 06:04: Nucleated Red Blood Cells % (auto) 0.0, Anion Gap 8, Glomerular Filtration Rate > 60.0, Calcium Level 9.1# CBC/BMP Laboratory Tests 03/04/21 12:01 03/05/21 06:04 MADELYN MUSTAFA MD March 05, 2021 09:28
[2021-03-05 14:00] VITALS: BP_SYST 135; BP_SYST 137; BP_DIAS 66; BP_DIAS 69
[2021-03-05] MEDS: PERCOCET 5MG/325MG TAB PO PRN (18:58)
[2021-03-05] MEDS: MIRTAZAPINE 15 MG TAB PO SCH (20:09)
[2021-03-05 22:00] VITALS: BP 137/70
[2021-03-06 06:00] VITALS: BP 148/75
[2021-03-06] MEDS: SENOKOT S TAB PO SCH (07:51)
[2021-03-06] MEDS: MIRALAX *UNIT DOSE* 17GM PACKET PO SCH (07:51)
[2021-03-06] MEDS: PERCOCET 5MG/325MG TAB PO PRN (09:17)
[2021-03-06] MEDS ORDERED: MIRT-62 PO (09:52)
--- NOTE | 2021-03-06 18:11 | DS.PDOC ---
Discharge Summary General Date of Admission March 04, 2021 at 20:19 Date of Discharge 03/06/21 Discharge Summary PROCEDURES PERFORMED DURING STAY: [None]. DISCHARGE DIAGNOSES: Dehydration due to poor oral intake Hyperkalemia Hypercalcemia BUSTER Right-sided breast mass, likely malignant Severe protein calorie malnutrition COPD, tension headaches hypertension, osteoporosis, GERD, low back pain and lumbar radiculopathy. Squamous cell carcinoma of skin, right inguinal hernia Chronic constipation Irritable bowel syndrome COMPLICATIONS/CHIEF COMPLAINT: Buster, Dehydration, Weakness. HOSPITAL COURSE: 85-year-old female who lives alone with past medical history of recently found to have rice to breast mass which was biopsied recently ,COPD, tension headaches hypertension, IBS, osteoporosis, GERD, low back pain and lumbar radiculopathy. Squamous cell carcinoma of skin, right inguinal hernia was recently hospitalized from 01/31/2021 2 02/04/2021 for abdominal pain which was attributed to acute urinary retention and a inguinal hernia with possible par tial small bowel obstruction presented to the emergency room for generalized weakness, poor appetite. Patient was recently seen by primary care provider on 02/24/2021 and was felt to have a urinary tract infection. She was prescribed Bactrim. Workup in the emergency room showed an elevated creatinine at 1.49 and an elevated potassium at 5.9. Patient was admitted for dehydration BUSTER, and hyperkalemia. Dehydration Suggested by hemoglobin of 15.2 which is much higher than her baseline of around 11 1 month ago resolved with IVF. Hyperkalemia Due to dehydration, BUSTER and Bactrim resolved Hypercalcemia Due to dehydration Will hold calcium supplements resolved BUSTER Prerenal, likely due to poor oral intake and Bactrim resolved. Bladder scan did not show any post void residual. Severe protein calorie malnutrition BMI of 15.6 Bitemporal wasting and wasting of small muscles of hands and feet Her albumin is in the normal range, but I think this was because of dehydration, so this falsely elevated History of hypertension Seems to have resolved with weight loss Patient's blood pressure has been normal to low in the hospital. Her verapamil w as discontinued IBS Continue hyoscyamine when necessary, and Godfrey Chronic constipation Likely due to opiates Will give bowel regimen Right-sided breast mass Likely malignant. , Biopsy results pending DISCHARGE MEDICATIONS: Please see below. ALLERGIES: Please see below. PHYSICAL EXAMINATION ON DISCHARGE: VITAL SIGNS: Please see below. General Exam: Positive: Alert, Cooperative, No Acute Distress Eye Exam: Positive: PERRLA, Conjunctiva & lids normal, EOMI; Negative: Sclera icteric ENT Exam: Positive: Atraumatic, Mucous membr. moist/pink, Pharynx Normal, Bitemporal wasting. Neck Exam: Positive: Supple; Negative: JVD, thyromegaly Chest Exam: Positive: Clear to auscultation, Normal air movement, Other (right breast hard mass just below the nipple area) Heart Exam: Positive: Rate Normal, Regular Rhythm, Normal S1, Normal S2; Negative: Murmurs, Rubs Abdomen Exam: Positive: Normal bowel sounds, Soft; Negative: Tenderness Extremity Exam: Negative: Clubbing, Cyanosis, Edema LABORATORY DATA: Please see below. ACTIVITY: [As tolerated]. DIET: As tolerated DISCHARGE PLAN: Home DISPOSITION: 01 Home, Self-Care. DISCHARGE INSTRUCTIONS: Follow up with PMD in 1 week Follow-up breast biopsy result DISCHARGE CONDITION: [Stable]. TIME SPENT ON DISCHARGE: 35 minutes. Vital Signs/I&Os Vital Signs Date Time Temp Pulse Resp B/P (MAP) Pulse Ox O2 Delivery O2 Flow Rate FiO2 03/06/21 09:47 20 03/06/21 06:00 98.4 68 148/75 (99) 95 03/05/21 19:28 Room Air I&O- Last 24 Hours up to 6 AM 03/06/21 06:00 Intake Total 2115 ml Output Total 750 ml Balance 1365 ml Discharge Medications Scheduled Ascorbate Calcium (Vitamin C) 500 Mg Tablet, 500 MG PO DAILY, (Reported) TAKES AT NOON Calcium Carbonate/Vitamin D3 (Calcium 600 + Vit D 400 Softgl) 1 Each Capsule, 1 CAP PO DAILY, (Reported) TAKES AT NOON Hydrocodone/Acetaminophen (Hydrocodone-Acetamin 7.5-300) 1 Each Tablet, 1 TAB PO BID, (Reported) Mirtazapine (Remeron) 15 Mg Tablet, 7.5 MG PO QHS Multivit-Min/FA/Lycopen/Lutein (Sentry Senior Tablet) 1 Tab Tab, 1 TAB PO DAILY, (Reported) TAKES AT NOON Polyethylene Glycol 3350 (Miralax) 1 Pow Pow, 8.5 GM PO DAILY, (Reported) Scheduled PRN Hyoscyamine Sulfate (Hyoscyamine Sulfate) 0.125 Mg Tab.subl, 0.125 MG SL Q4H PRN for ABDOMINAL PAIN, (Reported) Mometasone Furoate (Mometasone Furoate) 17 Gm [place].pump, 2 SPRAYS NARES BID PRN for ALLERGIES, (Reported) Allergies Coded Allergies: Penicillins (Verified Allergy, Intermediate, HIVES, 01/31/21) clindamycin (Verified Allergy, Intermediate, 01/31/21) Quinolones (Verified Allergy, Unknown, TEQUIN AND CIPRO, 01/31/21) cefdinir (Verified Allergy, Unknown, 01/31/21) sodium benzoate (Verified Allergy, Unknown, FROM OMNICEF, 01/31/21) topiramate (Verified Allergy, Unknown, 01/31/21) celecoxib (Verified Adverse Reaction, Intermediate, CAUSED ANEMIA, 01/31/21 ) tramadol (Verified Adverse Reaction, Intermediate, 01/31/21) Cephalosporins (Verified Adverse Reaction, Mild, DIARRHEA, 01/31/21) Estrogens (Verified Adverse Reaction, Mild, VAGINAL DISCHARGE, 01/31/21) clarithromycin (Verified Adverse Reaction, Mild, ABDOMINAL PAIN, 01/31/21) metronidazole (Verified Adverse Reaction, Mild, PASS OUT, 01/31/21) MADELYN MUSTAFA MD March 06, 2021 18:11
[2021-03-06] MEDS ORDERED: MIRTAZAPINE 7.5MG PER 1/2 TABLET PO SCH (21:00)
== END 2021-03-06 14:03 | disposition home or self-care (01) | DRG 682 ==
LOC: M ED 11:01 → M ED INP 11:02 → ENRESERV 19:39 → OBSVTOIN 20:19 → M MSPAV 20:49
PROVIDERS: ADMIT Internal Medicine Nephrology; ATTEND Internal Medicine Nephrology
DX: N17.9 Acute kidney failure, unspecified (principal); E43 Unspecified severe protein-calorie malnutrition; R53.1 Weakness; J44.9 Chronic obstructive pulmonary disease, unspecified; I10 Essential (primary) hypertension; G44.209 Tension-type headache, unspecified, not intractable; K58.1 Irritable bowel syndrome with constipation; M81.0 Age-related osteoporosis without current pathological fracture; E87.5 Hyperkalemia; R42 Dizziness and giddiness; R63.4 Abnormal weight loss; Z66 Do not resuscitate; E86.0 Dehydration; K21.9 Gastro-esophageal reflux disease without esophagitis; R63.0 Anorexia; E83.52 Hypercalcemia; N63.10 Unspecified lump in the right breast, unspecified quadrant; M54.16 Radiculopathy, lumbar region; Z85.828 Personal history of other malignant neoplasm of skin; Z79.899 Other long term (current) drug therapy; Z88.0 Allergy status to penicillin; Z88.1 Allergy status to other antibiotic agents; Z88.5 Allergy status to narcotic agent; Z88.8 Allergy status to other drugs, medicaments and biological substances; Z98.49 Cataract extraction status, unspecified eye; Z87.891 Personal history of nicotine dependence; Z20.822 Contact with and (suspected) exposure to COVID-19

== ENCOUNTER → 2021-03-15 | Outpatient (REF) | payer MEDICARE, OTHER ==
[~2021-03-15] MED LIST changes: +AUGM0.0534; +AZIT-12 PO; +CALC315T2 PO; +EQ S0.65 NARES; +LETR2.5T2 PO; +MIRT-62 PO; +MIRT1TAB15; +PHEN26CR PR; +RA S0.65 NARES; +SALA1TAB PO; +SYST1SOL4 OU; +VERA180T3 PO; +VITA-243 PO
== END ==
LOC: M LAB REF 03-14 19:19
PROVIDERS: ATTEND Physician Assistant
DX: B35.1 Tinea unguium (principal)
CPT/HCPCS: 17000; 17003; 87101; G0463

== ENCOUNTER → 2021-03-16 | Outpatient (REF) | payer MEDICARE, OTHER ==
[~2021-03-16] MED LIST changes: -SALA1TAB PO
[2021-03-16 17:20] LABS: ALBUMIN 3.7 GM/DL (3.2-5.2); ALT/SGPT 26 U/L (12-78); BILIRUBIN,TOTAL 0.4 MG/DL (0.2-1.0); BLOOD UREA NITROGEN 26 MG/DL (7-18); CALCIUM LEVEL 10.3 MG/DL (8.8-10.2); CARBON DIOXIDE LEVEL 30 MEQ/L (21-32); CHLORIDE LEVEL 102 MEQ/L (98-107); CREATININE FOR GFR 0.87 MG/DL (0.55-1.30); GLOMERULAR FILTRATION RATE > 60.0 (>32); GLUCOSE, FASTING 92 MG/DL (70-100); POTASSIUM SERUM 4.6 MEQ/L (3.5-5.1); SODIUM LEVEL 140 MEQ/L (136-145); TOTAL PROTEIN 8.1 GM/DL (6.4-8.2)
== END ==
LOC: M SFHCCLAY 11:18
PROVIDERS: ATTEND Family Medicine
DX: E03.9 Hypothyroidism, unspecified (principal); I10 Essential (primary) hypertension; J30.89 Other allergic rhinitis

== ENCOUNTER 2021-04-04 09:22 | Inpatient (IN) | payer MEDICARE, OTHER ==
[~2021-04-04] VITALS: Ht 152.4 cm; Wt 43.5 kg
[~2021-04-04 09:22] MED LIST changes: -AUGM0.0534; -AZIT-12 PO; -CALC315T2 PO; -EQ S0.65 NARES; -LETR2.5T2 PO; -PHEN26CR PR; -RA S0.65 NARES; -SYST1SOL4 OU; -VERA180T3 PO; -VITA-243 PO
--- NOTE | 2021-04-04 10:30 | REP ---
INDICATION: pain/difficulty swallowing. COMPARISON: None. TECHNIQUE: AP and lateral soft tissue neck radiographs (3 total views). FINDINGS: Significant degenerative changes of the visualized cervical spine and calcification to the thyroid cartilage noted. The soft tissues appear relatively normal and without subcutaneous emphysema or significant foreign body. The airway is patent and relatively normal in appearance and position. IMPRESSION: Degenerative changes to the cervical spine. Otherwise relatively normal soft tissue neck radiograph series. <Electronically signed by Brendan Cortez > 04/04/21 1027
[2021-04-04] MEDS ORDERED: ISOVUE-370 76% 100ML VIAL As Ordered ONE (10:53)
--- NOTE | 2021-04-04 11:51 | REPVR ---
PROCEDURE INFORMATION: Exam: CT Neck With Contrast Exam date and time: 04/04/2021 10:33 AM Age: 86 years old Clinical indication: Dysphagia / difficulty swallowing; Throat pain; Additional info: Pain inability to swallow TECHNIQUE: Imaging protocol: Computed tomography images of the neck with contrast. Radiation optimization: All CT scans at this facility use at least one of these dose optimization techniques: automated exposure control; mA and/or kV adjustment per patient size (includes targeted exams where dose is matched to clinical indication); or iterative reconstruction. Contrast material: ISOVUE 370; Contrast volume: 75 ml; Contrast route: INTRAVENOUS (IV); COMPARISON: CR Soft Tissue Neck 04/04/2021 10:00 AM FINDINGS: Orbital cavity: Thinning of the lenses of the globes consistent with prior lens surgery. Nasopharynx: Unremarkable. Oropharynx: Unremarkable. No significant tonsillar enlargement. Hypopharynx: The hypopharyngeal wall appears diffusely edematous consistent with pharyngitis. On axial image 53 of series 201, an approximate 9 x 8 mm hypodensity in the left pharyngoesophageal junction wall. This is also seen on coronal image 43 of series 202. This could represent a diverticulum, tumor, abscess or contained perforation. Larynx: Unremarkable. Normal epiglottis. Retropharyngeal space: Mild edema without evidence of abscess. Submandibular/Parotid glands: There is a 1.9 x 2.1 cm a heterogeneous, enhancing left parotid nodule. This is at the junction of the superficial in deep lobes. A smaller 1.2 x 0.9 cm superficial right parotid nodule. Thyroid: Thyroid nodules, the largest in the right thyroid lobe measuring 0.8 cm. Lymph nodes: No pathologically enlarged lymph nodes. Trachea: Visualized trachea is unremarkable. Lungs: The lung apices appear emphysematous. There are areas of likely parenchymal scarring. Bones/joints: There is an approximate 2.1 x1.6 cm lytic lesion in the right aspect of the T4 extending into the pedicle and superior articular facet, image 31 series 203. Tumor impinges upon the right T3-4 and T4-5 foramina. This may represent a metastasis or primary bone tumor. No severe central spinal canal stenosis is evident. There is cervical levoconvex scoliosis. Severe cervical facet arthropathy. Severe degenerative disc disease at C5-C6. 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 Soft tissues: Unremarkable. IMPRESSION: 1. Recommend an upper GI series or upper endoscopy to evaluate a 9 x 8 mm hypodensity at the left pharyngoesophageal junction which could represent a diverticulum, tumor, abscess or contained perforation. There does appear to be a component of diffuse hypopharyngeal wall edema suggesting pharyngitis. 2. There is a lytic lesion in the incidentally imaged T4 vertebral body extending into the posterior elements. Recommend MRI cervical spine without and with contrast for further evaluation. 3. Nonspecific bilateral parotid nodules, in particular, a heterogeneous, enhancing 2.1 cm left parotid nodule. These may represent abnormal lymph nodes or minor salivary gland tumors. Imaging cannot reliably distinguish between benign and malignant types of parotid lesions. ENT consultation is recommended for management recommendations. COMMENTS: Consistent with the [place] [employer]'s Incidental Findings Committee white paper (J Am Mayra Radiol 2015): In patients aged 35 years and older with an incidental thyroid nodule equal to or greater than 1.[address], MRI or extrathyroidal US, further evaluation with dedicated thyroid US is recommended for patients with normal life expectancy and without comorbidities. For smaller nodules without suspicious features, no further evaluation or follow up is recommended. THIS REPORT CONTAINS FINDINGS THAT MAY BE CRITICAL TO PATIENT CARE. The findings were verbally communicated via telephone conference with RAULITO NOVA at 11:48 AM EDT on 04/04/2021. The findings were acknowledged and understood. Electronically signed by: Amy Cannon On 04/04/2021 11:50:50 AM
[2021-04-04] MEDS ORDERED: FLUID PLACE HOLDER IV ONE (12:25)
[2021-04-04] MEDS ORDERED: VANCOMYCIN HCL IV ONE (12:25)
[2021-04-04] MEDS ORDERED: VANCOMYCIN HCL 500 MG in D5W MINI-BAG PLUS 100 ML IV ONE (12:45)
[2021-04-04 13:23] LABS: BASO # 0.1 10^3/uL (0.0-0.2); BASO % 0.4 % (0.0-1.0); EOS % 0.1 % (0.0-3.0); HEMATOCRIT 37.2 % (36.0-47.0); HEMOGLOBIN 11.9 g/dl (12.0-15.5); LYMPH # 1.6 10^3/uL (1.5-5.0); LYMPH % 10.8 % (24.0-44.0); MEAN CORPUSCULAR HEMOGLOBIN 29.9 pg (27.0-33.0); MEAN CORPUSCULAR VOLUME 93.5 fl (80.0-96.0); MONO # 0.6 10^3/uL (0.0-0.8); MONO % 4.1 % (2.0-8.0); NEUTROPHILS # 12.5 10^3/uL (1.5-8.5); NEUTROPHILS % 84.2 % (36.0-66.0); PLATELET COUNT, AUTOMATED 292 10^3/uL (150-450); RED BLOOD COUNT 3.98 10^6/uL (4.00-5.40); WHITE BLOOD COUNT 14.9 10^3/uL (4.0-10.0)
[2021-04-04] MEDS ORDERED: VANCOMYCIN HCL 750 MG, VIAL MATE ADAPTER 1 EACH in NS 250 ML IV ONE (13:25)
[2021-04-04] MEDS ORDERED: dexameTHASONE 20MG/5ML VIAL (J1100 PER 1MG) IV ONE (13:25)
[2021-04-04] MEDS ORDERED: MIRT-62 PO (13:34)
[2021-04-04] MEDS ORDERED: VERA180T3 PO (13:34)
--- NOTE | 2021-04-04 13:36 | IPNPDOC ---
Text Note Date of Service The patient was seen on 04/04/21. NOTE 86 yo female presenting with odynophagia and inability to swallow for 3 to 4 days duration. There has been some change in her voice and it more gruff. She has no difficulty breathing, stridor or drooling Denies any foreign body ingestion or prior hx of dysphagia She was recently diagnosed with Breast Ca and has no plan to go through chemo or RT for it PE Awake alert and cooperative Nares patent NSD to left inferiorly OC/OP no swelling of mucosa, uvula midline Neck no external swelling or tenderness Flex Laryngooscpy shows edema of left lateral laryngeal wall with stream of mucopus noted. There is edema of false cord but cord movement is normal CT looks to be edema of lateral hypooharynx without abscess formation IMP Looks to be infectious disease issue and not tumor. The airway is stable now, but there is some edema of the left lateral l arynx that needs to be watched She is allergic to most abx REC IV ABX ie Vancomycin or cleocin if she can take it Hydration Head of Bed 30 degrees Humided room air by face tent Steroids Decadroon Airway precautions with monitored bed ie ICU. May need intubation or controlled trach if she does not respond VS,Fishbone, I+O VS, Fishbone, I+O Laboratory Tests 04/04/21 13:03 Vital Signs Date Time Temp Pulse Resp B/P (MAP) Pulse Ox O2 Delivery O2 Flow Rate FiO2 04/04/21 10:52 91 97 04/04/21 10:45 164/73 (103) 04/04/21 09:42 97.5 20 Room Air ISAIAH CAMARA MD Apr 04, 2021 13:36
[2021-04-04] MEDS ORDERED: NS 1,000 ML IV SCH (13:40)
[2021-04-04] MEDS ORDERED: SYST1SOL4 OU (14:25)
[2021-04-04] MEDS ORDERED: ONDANSETRON 4MG/2ML VIAL IV ONE (14:30)
[2021-04-04] MEDS ORDERED: MORPHINE 2 MG/ML 1ML VIAL (J2270) IV PRN ×2 (14:30→15:00)
[2021-04-04] MEDS ORDERED: MIRALAX *UNIT DOSE* 17GM PACKET PO PRN (15:00)
[2021-04-04] MEDS ORDERED: HYOSCYAMINE SULFATE 0.125 MG SUBL TABLET SL PRN (15:00)
[2021-04-04] MEDS ORDERED: ACETAMINOPHEN 325 MG/10.15 ML UDC PO PRN (15:00)
[2021-04-04 16:29] LABS: RSV AMPLIFICATION NEGATIVE (NEGATIVE)
[2021-04-04 17:02] VITALS: BP 163/73
--- NOTE | 2021-04-04 17:09 | HPEPDOC ---
[facility] Medical History & Physical Date of Admission Apr 04, 2021 Date of Service: Apr 04, 2021 Attending Physician: MELVIN HEREDIA MD MPH History and Physical CHIEF COMPLAINT: Sore throat HISTORY OF PRESENT ILLNESS: Mrs. Mcconnell is a pleasant 86 year old female with pmhx of breast cancer that has been newly diagnosed and is pending possible chemotherapy intervention who presents with worsening sore throat and dysphonia for the past 4 days. Patient reports that 8 days ago she developed a sore throat and congestion that initially went away but returned 4 days ago and was accompanied by diffi culty/significant pain with swallowing both solids and liquids. She has no fevers or chills and has had poor PO intake 2/2 pain. She is able to handle her secretions and does not feel that she is choking or coughing. PAST MEDICAL HISTORY: Right Breast mass with axillary lymph nodes was biopsied ,Tension headaches, hypertension, COPD, IBS, osteoporosis, GERD, low back pain and lumbar radiculopathy. Squamous cell carcinoma of skin, right inguinal hernia with a loop of small bowel in it PAST SURGICAL HISTORY: Right Breast biopsy 03/03/2021 Dilation and curettage 1979 Sinus surgery 2003 Bilateral oophorectomy 2006 Uterus and bladder suspension 2008 Cataract removal 2017 Left shoulder squamous cell carcinoma resection 2018 FAMILY HISTORY: Non contributory SOCIAL HISTORY: Former smoker, quit 3 years ago No significant alcohol use history Lives alone, has one son who lives nearby but is not engaged in her care and one daughter who lives in [place] ROS: A 10 point ROS was obtained and was pertinent for additional weight loss of unknown number of pounds, chronic baseline constipation for which she takes miralax, and chronic back pain. PHYSICAL EXAMINATION: VITAL SIGNS: Please see below GENERAL APPEARANCE: Awake, alert, sitting up in bed, frail, and faintly cachectic, NAD HEENT: Normocephalic, atraumatic. Voice is rounded/full, no drooling, able to swallow, speak in full sentences Oral cavity: No pharyngeal erythema or exudate appreciated. No displacement of uvula. Moist mucous membranes. Neck: Supple, trachea midline. No lymphadenopathy appreciated. CARDIOVASCULAR: RRR, no appreciable m/r/g, no peripheral edema LUNGS: CTAB ABDOMEN: Soft, nontender. scaphoid EXTREMITIES: no deformities NEUROLOGICAL: AOx3, moving all extremities, CN II-XII intact PSYCHIATRIC: Mood and affect appear appropriate. LABORATORY STUDIES: As per below RADIOLOGY STUDIES: CT Neck IMPRESSION: 1. Recommend an upper GI series or upper endoscopy to evaluate a 9 x 8 mm hypodensity at the left pharyngoesophageal junction which could represent a diverticulum, tumor, abscess or contained perforation. There does appear to be a component of diffuse hypopharyngeal wall edema suggesting pharyngitis. 2. There is a lytic lesion in the incidentally imaged T4 vertebral body extending into the posterior elements. Recommend MRI cervical spine without and with contrast for further evaluation. 3. Nonspecific bilateral parotid nodules, in particular, a heterogeneous, enhancing 2.1 cm left parotid nodule. These may represent abnormal lymph nodes or minor salivary gland tumors. Imaging cannot reliably distinguish between benign and malignant types of parotid lesions. ENT consultation is recommended for management recommendations. MICROBIOLOGY: No recent ASSESSMENT: Mrs. Mcconnell is a pleasant 86 y/o female with a 1 week history of sore throat managed as outpatient who developed worsening pain with swallowing solids and liquids 4 days ago now found to have pharyngeal abscess on imaging and bronchoscopy. Patient is admitted for medical management of this in the setting of multiple medication allergies. PLAN: # sore throat: Imaging revealed pharyngeal abscess and ENT scoped patient in ED showing draining pharyngeal abscess. Patient is tolerating secretions well and is negative for SIRS though does have dysphagia and dysphonia and poor support netw ork at home. Will admit for IV abx and repeat exams, monitoring for airway security overnight. Could consider transferring to floor pending improvement in symptoms overnight, however appreciate ENTs continued engagement in this patients care. Meds: - Vancomycin Pharmacy to dose - Tylenol PRN pain 1-6/10 - Morphine PRN pain >6/10 - Decadron 5mg IV BID for airway swelling Monitor blood cultures Daily CBCs Aspiration precautions Airway precautions Intubation okay on this hospitalization # Chronic constipation: Have provided patient with her home dose of miralax, could consider KS dosing of docusate if patient is unable to tolerate PO. Meds: - Miralax PRN - KS docusate PRN Encourage ambulation # Breast cancer: Apparent mets on spine, patient is currently not interested in chemotherapy but does have appointment with Oncology on [id number]. Meds: - Pain Meds PRN Falls precautions Dispo: ICU for airway monitoring overnight pending improvement in pharyngeal swelling Diet: as tolerated DVT Prophy: Lovenox 30mg daily Discharge: anticipate >2 midnights for medical management and possible HH arrangement Consults: JANNETH as patient was previously receiving HH services and will likely need these on d/c Have also discussed importance of having healthcare proxy. Patient identified her son and daughter as being able to manage her affairs Vital Signs Vital Signs Date Time Temp Pulse Resp B/P (MAP) Pulse Ox O2 Delivery O2 Flow Rate FiO2 04/04/21 15:05 18 04/04/21 10:52 91 97 04/04/21 10:45 164/73 (103) 04/04/21 09:42 97.5 Room Air Laboratory Data Labs 24H Laboratory Tests 2 04/04/21 09:45: SARS Antigen (LFIA) NEGATIVE, POC Group A Strep Rapid Screen NEGATIVE 04/04/21 10:48: POC Glucose (Misc Panel) 100, POC Sodium (Misc Panel) 143, POC Potassium (Misc Panel) 4.1, POC Chloride (Misc Panel) 101, POC Total CO2 (Misc Panel) 24.0, POC Blood Urea Nitrogen (Misc Panel 19, POC Ionized Calcium (Misc Panel) 5.3, POC Creatinine (Misc Panel) 0.9, POC Hematocrit (Misc Panel) 38.0 04/04/21 13:03: Immature Granulocyte % (Auto) 0.4, Neutrophils (%) (Auto) 84.2H, Lymphocytes (%) (Auto) 10.8L, Monocytes (%) (Auto) 4.1, Eosinophils (%) (Auto) 0.1, Basophils (%) (Auto) 0.4, Neutrophils # (Auto) 12.5H, Lymphocytes # (Auto) 1.6, Monocytes # (Auto) 0.6, Eosinophils # (Auto) 0.0, Basophils # (Auto) 0.1, Nucleated Red Blood Cells % (auto) 0.0 04/04/21 13:41: Lactic Acid Level 0.8 04/04/21 14:59: Coronavirus (COVID-19)(PCR) NEGATIVE, Influenza Type A (RT-PCR) NEGATIVE, Influenza Type B (RT-PCR) NEGATIVE, Respiratory Syncytial Virus (PCR) NEGATIVE, Methicillin-Resist S.aureus DNA PCR NOT DETECTED CBC/BMP Laboratory Tests 04/04/21 13:03 Microbiology Microbiology 04/04/21 Blood Culture, Received Pending 04/04/21 Blood Culture, Received Pending 04/04/21 Group A Streptococcus Screen (BRUCE), Received Pending Home Medications Scheduled Ascorbate Calcium (Vitamin C) 500 Mg Tablet, 500 MG PO DAILY TAKES AT NOON Hydrocodone/Acetaminophen (Hydrocodone-Acetamin 7.5-300) 1 Each Tablet, 1 TAB PO BID Multivit-Min/FA/Lycopen/Lutein (Sentry Senior Tablet) 1 Tab Tab, 1 TAB PO DAILY TAKES AT NOON Scheduled PRN Hyoscyamine Sulfate (Hyoscyamine Sulfate) 0.125 Mg Tab.subl, 0.125 MG SL Q4H PRN for ABDOMINAL PAIN Mometasone Furoate (Mometasone Furoate) 17 Gm [place].pump, 2 SPRAYS NARES BID PRN for ALLERGIES Polyethylene Glycol 3350 (Miralax) 1 Pow Pow, 17 MG PO DAILY PRN for CONSTIPATION Propylene Glycol/Peg 400/Pf (Systane 0.3-0.4% Eye Drop) 1 Each Droperette, 1 DROP OU QID PRN for DRY EYES Allergies Coded Allergies: Penicillins (Verified Allergy, Intermediate, HIVES, 04/04/21) clindamycin (Verified Allergy, Intermediate, 04/04/21) Quinolones (Verified Allergy, Unknown, TEQUIN AND CIPRO, 04/04/21) cefdinir (Verified Allergy, Unknown, 04/04/21) sodium benzoate (Verified Allergy, Unknown, FROM OMNICEF, 04/04/21) topiramate (Verified Allergy, Unknown, 04/04/21) celecoxib (Verified Adverse Reaction, Intermediate, CAUSED ANEMIA, 04/04/21) tramadol (Verified Adverse Reaction, Intermediate, 04/04/21) Cephalosporins (Verified Adverse Reaction, Mild, DIARRHEA, 04/04/21) Estrogens (Verified Adverse Reaction, Mild, VAGINAL DISCHARGE, 04/04/21) clarithromycin (Verified Adverse Reaction, Mild, ABDOMINAL PAIN, 04/04/21) metronidazole (Verified Adverse Reaction, Mild, PASS OUT, 04/04/21) A-FIB/CHADSVASC A-FIB History Current/History of A-Fib/PAF?: No Current PO Anticoag Therapy: No Age/Risk Factor Scoring CHADSVASC: CHADSVASC Response (Comments) Value Age Risk Factor Age >/= 75 years old 2 Gender Risk Factor Female 1 Hx of CHF No 0 Hx of HTN No 0 Hx of Stroke/TIA/or VTE No 0 Hx of Diabetes No 0 Hx of Vascular Disease No 0 Total 3 MELVIN HEREDIA MD M[facility] Apr 04, 2021 17:09
[2021-04-04] MEDS ORDERED: hydrALAZINE 20MG/ML 1ML VIAL (J0360 PER 20MG) IV PRN (19:45)
[2021-04-04 20:00] VITALS: BP 127/64
[2021-04-04 21:00] VITALS: BP 134/63
[2021-04-04 22:00] VITALS: BP 119/55
[2021-04-04 23:00] VITALS: BP 111/56
[2021-04-05] VITALS (11 sets, daily range): BP systolic 109–160; BP diastolic 55–75
[2021-04-05] MEDS ORDERED: dexameTHASONE 4 MG/ML 1ML VIAL (J1100 PER 1MG) IV SCH (02:00)
[2021-04-05 04:56] LABS: HEMATOCRIT 36.3 % (36.0-47.0); HEMOGLOBIN 11.7 g/dl (12.0-15.5); MEAN CORPUSCULAR HEMOGLOBIN 30.5 pg (27.0-33.0); MEAN CORPUSCULAR HGB CONC 32.2 g/dl (32.0-36.5); MEAN CORPUSCULAR VOLUME 94.5 fl (80.0-96.0); PLATELET COUNT, AUTOMATED 308 10^3/uL (150-450); RED BLOOD COUNT 3.84 10^6/uL (4.00-5.40); WHITE BLOOD COUNT 14.8 10^3/uL (4.0-10.0)
[2021-04-05 05:17] LABS: BLOOD UREA NITROGEN 25 MG/DL (7-18); CARBON DIOXIDE LEVEL 28 MEQ/L (21-32); CHLORIDE LEVEL 110 MEQ/L (98-107); CREATININE FOR GFR 0.89 MG/DL (0.55-1.30); GLOMERULAR FILTRATION RATE > 60.0 (>32); GLUCOSE, FASTING 111 MG/DL (70-100); MAGNESIUM LEVEL 2.2 MG/DL (1.8-2.4); SODIUM LEVEL 141 MEQ/L (136-145)
[2021-04-05] MEDS: ASCORBIC ACID 500 MG TAB PO SCH (09:47)
[2021-04-05] MEDS: ENOXAPARIN 30MG/0.3ML SYRINGE (J1650 PER 10MG) SC SCH (09:48)
[2021-04-05] MEDS: dexameTHASONE 4 MG/ML 1ML VIAL (J1100 PER 1MG) IV SCH ×2 (09:49→20:24)
[2021-04-05] MEDS: ANEXSIA, NORCO 7.5MG/325MG TABLET(HYDROCODONE/APAP) PO PRN (11:13)
--- NOTE | 2021-04-05 13:17 | IPNPDOC ---
Text Note Date of Service The patient was seen on 04/05/21. NOTE Subjective: Patient was seen and examined in the ICU this morning. She tells me she's feeling a lot better her throat pain has resolved. She's been able to swallow without difficulty. She was able to tolerate her dinner last evening and breakfast this morning that issue. She denies any fevers or chills. She surprised by quickly she feels she improved. There is no acute overnight events reported to me. Objective: Constitutional: Awake and alert, in no apparent distress ENT: Sclera are clear. Mucosa is moist. No pharyngeal erythema. Uvula is midline. Trachea is midline. No lymphedema appreciated. Respiratory: Lungs CTA bilaterally. No respiratory distress. Cardiovascular: Regular rate and rhythm. Gastrointestinal: Abdomen is soft, non distended, non tender Musculoskeletal: No lower extremity edema Neurologic: No focal neurological deficit. Mental Status: A&O x3, normal affect Skin: No visible rashes Imaging: CT Neck IMPRESSION: 1. Recommend an upper GI series or upper endoscopy to evaluate a 9 x 8 mm hypodensity at the left pharyngoesophageal junction which could represent a diverticulum, tumor, abscess or contained perforation. There does appear to be a component of diffuse hypopharyngeal wall edema suggesting pharyngitis. 2. There is a lytic lesion in the incidentally imaged T4 vertebral body extending into the posterior elements. Recommend MRI cervical spine without and with contrast for further evaluation. 3. Nonspecific bilateral parotid nodules, in particular, a heterogeneous, enhancing 2.1 cm left parotid nodule. These may represent abnormal lymph nodes or minor salivary gland tumors. Imaging cannot reliably distinguish between benign and malignant types of parotid lesions. ENT consultation is recommended for management recommendations. Assessment/plan: Mrs. Mcconnell is a pleasant 86 y/o female with a 1 week history of sore throat managed as outpatient who developed worsening pain with swallowing solids and liquids 4 days ago now found to have pharyngeal abscess. # Pharyngitis with possible left pharyngoesophageal junction abscess: Seen by ENT Dr Rodriguez. Suspects abscess, recommends steroids and continued Abx. Continue IV Decadron. Currently on IV vancomycin. Consulted Dr Llanes to help with antibiotic choice now and on discharge given multiple drug allergies, I appreciate her recommendations. She continues to have an elevated white count although this can be also explained by being on steroids. Will be seen tomorrow morning in ENT clinic once again for another endoscopy prior to anticipated discharge. Overall she's doing much better, tolerating her diet well. Denies sore throat now. Swallowing without difficulty. Voice clear. Downgraded to PCU. Blood cultures are pending. Throat culture was negative for group A strep. # Chronic constipation: Bowel regiment # Breast cancer: Apparently with possible metastasis to spine. Follow up with oncology as scheduled April 13. # DVT prophylaxis: Darlyn Keyes Hospitalist VSDevi, I+O VSDevi, I+O Laboratory Tests 04/05/21 04:47 Vital Signs Date Time Temp Pulse Resp B/P (MAP) Pulse Ox O2 Delivery O2 Flow Rate FiO2 04/05/21 12:00 100.8 86 18 160/72 (101) 95 Room Air I&O- Last 24 Hours up to 6 AM 04/05/21 06:00 Intake Total 1140 ml Output Total 400 ml Balance 740 ml ORLANDO KEYES MD Apr 05, 2021 13:17
--- NOTE | 2021-04-05 13:44 | IPNPDOC ---
Text Note Date of Service The patient was seen on 04/05/21. NOTE Afebrils VSS no respiratory distress She alonzo feeling better today Swallowing without difficulty Neck supple Voice more normal and clear IMP responding to IV ABX Airway is stable enough to transport to regulaar room Continue IV aBX and steroids and I will see her in clinic in AM for endoscopy Possible discharge after that VS,Fishbone, I+O VS, Fishbone, I+O Laboratory Tests 04/05/21 04:47 Vital Signs Date Time Temp Pulse Resp B/P (MAP) Pulse Ox O2 Delivery O2 Flow Rate FiO2 04/05/21 12:00 100.8 86 18 160/72 (101) 95 Room Air I&O- Last 24 Hours up to 6 AM 04/05/21 06:00 Intake Total 1140 ml Output Total 400 ml Balance 740 ml ISAIAH CAMARA MD Apr 05, 2021 13:44
[2021-04-05] MEDS ORDERED: VANCOMYCIN HCL 500 MG in D5W MINI-BAG PLUS 100 ML IV SCH (14:00)
[2021-04-05] MEDS ORDERED: VANCOMYCIN HCL 750 MG, VIAL MATE ADAPTER 1 EACH in NS 250 ML IV SCH (14:00)
[2021-04-05] MEDS ORDERED: AZITHROMYCIN 250MG TABLET PO SCH (21:55)
[2021-04-06] MEDS: ANEXSIA, NORCO 7.5MG/325MG TABLET(HYDROCODONE/APAP) PO PRN (00:04)
[2021-04-06 00:11] VITALS: BP 158/72
[2021-04-06 04:00] VITALS: BP 158/72
[2021-04-06 05:27] LABS: HEMOGLOBIN 12.2 g/dl (12.0-15.5); MEAN CORPUSCULAR HGB CONC 32.1 g/dl (32.0-36.5); MEAN CORPUSCULAR VOLUME 93.6 fl (80.0-96.0); PLATELET COUNT, AUTOMATED 303 10^3/uL (150-450); RED BLOOD COUNT 4.06 10^6/uL (4.00-5.40); WHITE BLOOD COUNT 18.6 10^3/uL (4.0-10.0)
[2021-04-06 06:00] LABS: BLOOD UREA NITROGEN 23 MG/DL (7-18); CALCIUM LEVEL 9.2 MG/DL (8.8-10.2); CARBON DIOXIDE LEVEL 28 MEQ/L (21-32); CHLORIDE LEVEL 110 MEQ/L (98-107); CREATININE FOR GFR 0.75 MG/DL (0.55-1.30); GLOMERULAR FILTRATION RATE > 60.0 (>32); GLUCOSE, FASTING 117 MG/DL (70-100); POTASSIUM SERUM 4.1 MEQ/L (3.5-5.1); SODIUM LEVEL 142 MEQ/L (136-145); VANCOMYCIN LEVEL TROUGH 12.5 UG/ML (10.0-20.0)
[2021-04-06 07:37] VITALS: BP 154/74
[2021-04-06] MEDS ORDERED: AZITHROMYCIN 250MG TABLET PO SCH (09:00)
[2021-04-06] MEDS: ENOXAPARIN 30MG/0.3ML SYRINGE (J1650 PER 10MG) SC SCH (09:05)
[2021-04-06] MEDS: ASCORBIC ACID 500 MG TAB PO SCH (09:05)
[2021-04-06] MEDS: dexameTHASONE 4 MG/ML 1ML VIAL (J1100 PER 1MG) IV SCH (09:05)
--- NOTE | 2021-04-06 09:06 | CR ---
CONSULTATION DATE: 04/05/2021 REASON FOR CONSULTATION: I was asked to consult by Rajendra Keyes MD for evaluation of neck abscess and choice of antibiotic. HISTORY OF PRESENT ILLNESS: Mrs. Mcconnell is a pleasant, 86-year-old female with a history of breast cancer, recently diagnosed, who presented with five days of worsening vertigo, dysphonia and difficulty with secretions, especially postnasal drip. The patient had been seen at the [facility] about a week prior to that for a sore throat and was told she had a viral illness or allergies. She was told to use cough drops. The secretions got worse and she was having worsening pain and therefore came to the emergency room. She had no fever or chills until this morning when she had a temperature of 100.8. She had difficulty with oral intake due to pain. She was placed in the ICU for concern of obstruction but there was no evidence of tracheal obstruction. She had some cough mostly productive of whitish phlegm. PAST MEDICAL HISTORY: 1. Right breast mass with axillary lymph node biopsied consistent with breast cancer. 2. T4 lesion on CT of which consistent with metastasis. 3. Tension headache. 4. Hypertension. 5. COPD. 6. Irritable bowel syndrome. 7. Osteoporosis. 8. Gastroesophageal reflux disease. 9. Low back pain with lumbar radiculopathy. 10. Squamous cell carcinoma of the skin. PAST SURGICAL HISTORY: 1. Right inguinal hernia. 2. Right breast biopsy 03/03/2021. 3. D&C, 1979. 4. Sinus surgery, 2003. 5. Oophorectomy, 2005. 6. Hysterectomy and bladder suspension, 2007. 7. Cataract surgery, 2017. 8. Squamous cell carcinoma resection, 2018, left shoulder. FAMILY HISTORY: Nonrevealing. SOCIAL HISTORY: She quit smoking three years ago. No significant alcohol use. She lives alone. She has one son who lives nearby but is not very involved in her care and her daughter is in [place]. REVIEW OF SYSTEMS: She has no nausea, vomiting or diarrhea, no abdominal pain. Sore throat has improved compared to yesterday. No upper or lower extremity weakness. LABORATORY DATA: White count is 14.8, hemoglobin 11.7, hematocrit 32.3, platelets 308. Sodium 141, potassium 4, chloride 110, bicarb 28, BUN 25, creatinine 0.89, glucose 111, lactic acid 0.8, calcium 9, magnesium 2.2. Vancomycin trough 6.4. SARS-CoV-2, influenza A, B, RSA negative. MRSA screen was negative. Group A Strep was negative. Throat culture was not sent. Throat cultures: No growth after [address] imaging of the neck showed 2.1 x 1.6 distinct lesion in the right aspect of T4 extending into the pedicle. No canal stenosis. Recommend MRI of the spine. 2.1 cm left parotid nodule. This may represent normal lymph nodes or minor salivary gland tumors. PHYSICAL EXAMINATION: General: She is a pleasant female in no acute distress. Vital Signs: T max 100.8, pulse 86, respirations 18, blood pressure 160/72, O2 sat 95% on room air. Heart: Normal S1, S2, no murmurs. Lungs: Diminished breath sounds bilaterally. Abdomen: Soft, nontender, no hepatosplenomegaly. Neck: Supple with no stiffness. Oropharynx is clear with no thrush, no lesions appreciated. Mild erythema of the pharynx. Neurologic: She is alert and oriented x3, moves all extremities, upper and lower with normal strength. Review of Dr. Rodriguez' note shows that flexible laryngoscopy shows edema of the left lateral laryngeal wall with a stream of mucus noted, edema of the false cord but the cord movement is normal. According to the impression, it looks infectious in nature and not the tumor. MEDICATIONS: 1. Vancomycin 750 mg IV q.24 hours. 2. Vicodin one tablet p.o. q.12 p.r.n. 3. Decadron 5 mg IV q.12 hours. 4. Vitamin C 500 mg p.o. daily. 5. Lovenox 30 mg subcu daily. 6. Miralax p.r.n. 7. Levsin p.r.n. IMPRESSION: This is an 86-year-old female who was admitted with sore throat, neck pain and difficulty with increased secretions. Seems like she had a viral illness about a week ago for which she was seen by her primary care provider. She may have had a small neck abscess but there was no significant swelling or secretions. The patient has improved with Decadron and IV vancomycin. She is allergic to many medications but she is not sure about the allergy side effect. Penicillin and cephalosporins are listed, quinolones. Clarithromycin causes diarrhea. Some of the reactions are diarrhea. Others are a rash. PLAN: Continue with IV vancomycin tonight. We will also Zithromax 500 mg p.o. daily to start tonight, see how she tolerates that. If she can tolerate it, patient could be discharged home with Zithromax 500 mg p.o. daily for seven days.
[2021-04-06] MEDS ORDERED: VANCOMYCIN HCL 750 MG, VIAL MATE ADAPTER 1 EACH in NS 250 ML IV SCH ×2 (10:00→12:00)
[2021-04-06 11:38] VITALS: BP 142/68
[2021-04-06] MEDS ORDERED: AZIT-12 PO (11:48)
--- NOTE | 2021-04-06 11:55 | DS.PDOC ---
Discharge Summary General Date of Admission Apr 04, 2021 at 14:58 Date of Discharge 04/06/21 Discharge Summary PROCEDURES PERFORMED DURING STAY: [None]. ADMITTING/DISCHARGE DIAGNOSES: 1. Pharyngitis with possible left pharyngoesophageal junction abscess COMPLICATIONS/CHIEF COMPLAINT: Buster,Pharyngeal Abscess. HISTORY OF PRESENT ILLNESS: From admitting attendings H&P: Mrs. Mcconnell is a pleasant 86 year old female with pmhx of breast cancer that has been newly diagnosed and is pending possible chemotherapy intervention who presents with worsening sore throat and dysphonia for the past 4 days. Patient reports that 8 days ago she developed a sore throat and congestion that initially went away but returned 4 days ago and was accompanied by difficulty/significant pain with swallowing both solids and liquids. She has no fevers or chills and has had poor PO intake 2/2 pain. She is able to handle her secretions and does not feel that she is choking or coughing. HOSPITAL COURSE: Mrs. Mcconnell is a pleasant 86 y/o female with a 1 week history of sore throat managed as outpatient who developed worsening pain with swallowing solids and liquids 4 days ago now found to have pharyngeal abscess. Patient was seen by Dr. Rodriguez ENT who initially noted on endoscopy some pus and swelling and recommended steroids and antibiotics patient improved on IV Decadron and IV vancomycin. Patient was evaluated again in the clinic by Dr. Rodriguez, repeat endoscopy he tells me that there was no more pus and the edema completely resolved. He recommended she can be discharge and no need for follow- up only as needed. Dr. Llanes from infectious disease saw the patient and assisted with antibiotic choice given her multiple antibiotic allergies and recommended azithromycin for 5 more days. Patient received the first dose of azithromycin in the hospital without incident. At the time of discharge patient had no more throat pain no swelling no difficulty breathing or swallowing and felt back to baseline. She had leukocytosis which is likely explained because of the IV Decadron and she was receiving in the hospital. I recommended to her that she should follow-up with her primary care physician within the next 5 days. DISCHARGE MEDICATIONS: Please see below. ALLERGIES: Please see below. PHYSICAL EXAMINATION ON DISCHARGE: VITAL SIGNS: Please see below. Constitutional: Awake and alert, in no apparent distress ENT: Sclera are clear. Mucosa is moist. No pharyngeal erythema. Uvula is midline. Trachea is midline. No lymphedema appreciated. Respiratory: Lungs CTA bilaterally. No respiratory distress. Cardiovascular: Regular rate and rhythm. Gastrointestinal: Abdomen is soft, non distended, non tender Musculoskeletal: No lower extremity edema Neurologic: No focal neurological deficit. Mental Status: A&O x3, normal affect Skin: No visible rashes LABORATORY DATA: Please see below. IMAGING: CT Neck IMPRESSION: 1. Recommend an upper GI series or upper endoscopy to evaluate a 9 x 8 mm hypodensity at the left pharyngoesophageal junction which could represent a diverticulum, tumor, abscess or contained perforation. There does appear to be a component of diffuse hypopharyngeal wall edema suggesting pharyngitis. 2. There is a lytic lesion in the incidentally imaged T4 vertebral body extending into the posterior elements. Recommend MRI cervical spine without and with contrast for further evaluation. 3. Nonspecific bilateral parotid nodules, in particular, a heterogeneous, enhancing 2.1 cm left parotid nodule. These may represent abnormal lymph nodes or minor salivary gland tumors. Imaging cannot reliably distinguish between benign and malignant types of parotid lesions. ENT consultation is recommended for management recommendations. PROGNOSIS: Fair ACTIVITY: [As tolerated]. DIET: Regular diet DISPOSITION: Home DISCHARGE INSTRUCTIONS: Please follow up with your primary care physician within 1 week from discharge. If you do not have one, please follow up with us to schedule an appointment. Please keep all of your follow up appointments. Please call central to book your appointments with hospital specialists. Please take all your medications as prescribed. Please call/come to Clinic or go to the Emergency Department if - Temp >101, intractable Nausea/Vomiting, Diarrhea, Mouth sores, Headaches, Altered mental status, Seizures, sudden onset of swelling, bleeding, shortness of breath or chest pain. DISCHARGE CONDITION: [Stable]. TIME SPENT ON DISCHARGE: 35 minutes. Vital Signs/I&Os Vital Signs Date Time Temp Pulse Resp B/P (MAP) Pulse Ox O2 Delivery O2 Flow Rate FiO2 04/06/21 07:37 98.0 72 18 154/74 (100) 95 Room Air I&O- Last 24 Hours up to 6 AM 04/06/21 05:59 Intake Total 1175 ml Output Total 425 ml Balance 750 ml Laboratory Data Labs 24H Laboratory Tests 2 04/05/21 12:50: Vancomycin Level Trough 6.4L 04/06/21 05:07: Vancomycin Level Trough 12.5, Nucleated Red Blood Cells % (auto) 0.0, Anion Gap 4L, Glomerular Filtration Rate > 60.0, Calcium Level 9.2, Magnesium Level 2.0 CBC/BMP Laboratory Tests 04/06/21 05:07 Microbiology Microbiology 04/04/21 Blood Culture - Preliminary, Resulted No growth after 24 hours . All specim... 04/04/21 Blood Culture - Preliminary, Resulted No growth after 24 hours . All specim... 04/04/21 Group A Streptococcus Screen ([facility]) - Final, Complete Discharge Medications Scheduled Azithromycin (Azithromycin) 250 Mg Tablet, 500 MG PO DAILY@1800 Hydrocodone/Acetaminophen (Hydrocodone-Acetamin 7.5-300) 1 Each Tablet, 1 TAB PO BID, (Reported) Multivit-Min/FA/Lycopen/Lutein (Sentry Senior Tablet) 1 Tab Tab, 1 TAB PO DAILY, (Reported) TAKES AT NOON Scheduled PRN Hyoscyamine Sulfate (Hyoscyamine Sulfate) 0.125 Mg Tab.subl, 0.125 MG SL Q4H PRN for ABDOMINAL PAIN, (Reported) Mometasone Furoate (Mometasone Furoate) 17 Gm Zenda.pump, 2 SPRAYS NARES BID PRN for ALLERGIES, (Reported) Polyethylene Glycol 3350 (Miralax) 1 Pow Pow, 17 MG PO DAILY PRN for CONSTIPATION, (Reported) Propylene Glycol/Peg 400/Pf (Systane 0.3-0.4% Eye Drop) 1 Each Droperette, 1 DROP OU QID PRN for DRY EYES, (Reported) Allergies Coded Allergies: Penicillins (Verified Allergy, Intermediate, HIVES, 04/04/21) clindamycin (Verified Allergy, Intermediate, 04/04/21) Quinolones (Verified Allergy, Unknown, TEQUIN AND CIPRO, 04/04/21) cefdinir (Verified Allergy, Unknown, 04/04/21) sodium benzoate (Verified Allergy, Unknown, FROM OMNICEF, 04/04/21) topiramate (Verified Allergy, Unknown, 04/04/21) celecoxib (Verified Adverse Reaction, Intermediate, CAUSED ANEMIA, 04/04/21) tramadol (Verified Adverse Reaction, Intermediate, 04/04/21) Cephalosporins (Verified Adverse Reaction, Mild, DIARRHEA, 04/04/21) Estrogens (Verified Adverse Reaction, Mild, VAGINAL DISCHARGE, 04/04/21) clarithromycin (Verified Adverse Reaction, Mild, ABDOMINAL PAIN, 04/04/21) metronidazole (Verified Adverse Reaction, Mild, PASS OUT, 04/04/21) ORLANDO WONG MD Apr 06, 2021 11:54
[2021-04-07] MEDS ORDERED: AUGM0.0534 (14:34)
== END 2021-04-06 13:55 | disposition home health service (06) | DRG 153 ==
LOC: EDBD 09:22 → M ED 09:22 → M ED INP 14:58 → ENRESERV 15:09 → M ICU 17:02 → M PCU 04-05 16:08
PROVIDERS: ADMIT General Practice; ATTEND Internal Medicine Pulmonary Disease
DX: J39.1 Other abscess of pharynx (principal); C79.51 Secondary malignant neoplasm of bone; C50.911 Malignant neoplasm of unspecified site of right female breast; G44.209 Tension-type headache, unspecified, not intractable; J44.9 Chronic obstructive pulmonary disease, unspecified; K58.9 Irritable bowel syndrome, unspecified; K21.9 Gastro-esophageal reflux disease without esophagitis; M54.16 Radiculopathy, lumbar region; K59.09 Other constipation; Z66 Do not resuscitate; Z85.828 Personal history of other malignant neoplasm of skin; Z98.49 Cataract extraction status, unspecified eye; Z87.891 Personal history of nicotine dependence; Z20.822 Contact with and (suspected) exposure to COVID-19

== ENCOUNTER 2021-04-07 11:23 | Emergency (ER) | payer MEDICARE, OTHER ==
[~2021-04-07 11:23] MED LIST changes: +AZIT-12 PO; +SYST1SOL4 OU; +VERA180T3 PO
[2021-04-07 12:52] LABS: BASO % 0.1 % (0.0-1.0); EOS % 0.1 % (0.0-3.0); HEMATOCRIT 37.3 % (36.0-47.0); LYMPH # 1.2 10^3/uL (1.5-5.0); LYMPH % 7.2 % (24.0-44.0); MEAN CORPUSCULAR HEMOGLOBIN 30.2 pg (27.0-33.0); MEAN CORPUSCULAR HGB CONC 32.2 g/dl (32.0-36.5); MONO # 1.1 10^3/uL (0.0-0.8); MONO % 6.7 % (2.0-8.0); NEUTROPHILS # 13.9 10^3/uL (1.5-8.5); NEUTROPHILS % 85.3 % (36.0-66.0); PLATELET COUNT, AUTOMATED 305 10^3/uL (150-450); RED BLOOD COUNT 3.97 10^6/uL (4.00-5.40); WHITE BLOOD COUNT 16.2 10^3/uL (4.0-10.0)
[2021-04-07 13:15] LABS: BLOOD UREA NITROGEN 20 MG/DL (7-18); CALCIUM LEVEL 8.7 MG/DL (8.8-10.2); CARBON DIOXIDE LEVEL 29 MEQ/L (21-32); CHLORIDE LEVEL 109 MEQ/L (98-107); CREATININE FOR GFR 0.75 MG/DL (0.55-1.30); GLOMERULAR FILTRATION RATE > 60.0 (>32); GLUCOSE, FASTING 87 MG/DL (70-100); POTASSIUM SERUM 3.5 MEQ/L (3.5-5.1); SODIUM LEVEL 142 MEQ/L (136-145)
[2021-04-07 14:15] VITALS: BP 152/78
[2021-04-07] MEDS ORDERED: AUGM0.0534 (14:34)
== END 2021-04-07 15:37 | disposition home or self-care (01) ==
LOC: M ED 11:23
DX: G47.00 Insomnia, unspecified (principal); J44.9 Chronic obstructive pulmonary disease, unspecified; I10 Essential (primary) hypertension; K21.9 Gastro-esophageal reflux disease without esophagitis; K58.9 Irritable bowel syndrome, unspecified; M54.5 Low back pain; G89.29 Other chronic pain; Z79.2 Long term (current) use of antibiotics; Z79.899 Other long term (current) drug therapy; Z88.0 Allergy status to penicillin; Z88.1 Allergy status to other antibiotic agents; Z88.8 Allergy status to other drugs, medicaments and biological substances; Z88.5 Allergy status to narcotic agent

== ENCOUNTER → 2021-04-25 | Outpatient (CLI) | payer MEDICARE, OTHER ==
[~2021-04-25] MED LIST changes: +AUGM0.0534; +CALC315T2 PO; +EQ S0.65 NARES; +LETR2.5T2 PO; +PHEN26CR PR; +RA S0.65 NARES; +VITA-243 PO
--- NOTE | 2021-04-25 18:46 | REP ---
INDICATION: RESTAGING BREAST CANCER C50.811. COMPARISON: Comparison mammography February 21. Comparison chest x-ray March 04, 2021. Comparison soft tissue neck CT study is from April 04, 2021.. TECHNIQUE: Forty-seven minutes following the intravenous injection of a 8.56 mCi dose of F-18 FDG, three-dimensional PET scintigraphy is acquired from the skull base to the proximal thighs. Triplanar noncontrast CT scanning is acquired through the same anatomic range for attenuation correction, and image registration with scan parameters optimized to minimize radiation exposure to the patient. PET scintigraphy and CT datasets were fused and displayed on a workstation with multiplanar and projection display capability. FINDINGS: In the head and neck soft tissues, bilateral hypermetabolic parotid gland masses are present. The left is the larger of the 2, 2.1 cm in diameter with maximum standard uptake value 11.18. The smaller more superficial hypermetabolic mass in the right parotid gland has a maximum standard uptake value of 7.09. The head and neck soft tissues are otherwise unremarkable. The lytic lesion recently identified in the T4 vertebral body is hypermetabolic. Maximum standard uptake value in it is 5.31. There is a small hypermetabolic lytic lesion in the glenoid under a cm in diameter with maximum standard uptake value 2.4. There is a 1 cm lymph node in the right axilla which shows mildly increased uptake but not quite hypermetabolic, SUV value 2.10. No other axillary hypermetabolic uptake is seen there is a small hypermetabolic 1 cm nodule in the right lateral breast which could be an intramammary lymph node. Maximum standard uptake value in this is 2.03. The patient's known right breast mass is hypermetabolic, maximum standard uptake value 7.54. In the abdomen and pelvis no abnormal hypermetabolic uptake is seen. No abnormal hypermetabolic uptake is seen in the bony pelvis sacrum or lumbar spine. No other skeletal metastatic site is appreciated. There is hypermetabolic pleural nodular density in the right lower lobe of the lung suspicious for early pleural metastatic disease. Maximum standard uptake value 2.85. IMPRESSION: Large hypermetabolic right breast mass with intramammary and right axillary suspicious normal-sized lymph nodes. There are pleural based nodules in the lower lobes bilaterally which may reflect early pleural disease. These are hypermetabolic as well. There is evidence of hypermetabolic skeletal metastatic disease involving the T4 vertebral body as well as the right glenoid. Lastly, there are bilateral parotid masses both of which are hypermetabolic. These may be primary parotid benign or malignant lesions. Less likely metastatic lesions. <Electronically signed by Jovan Pedroza > 04/25/21 [id number]
== END ==
LOC: M PLARAD 11:49
PROVIDERS: ATTEND Surgery
DX: C50.811 Malignant neoplasm of overlapping sites of right female breast (principal); R91.8 Other nonspecific abnormal finding of lung field
CPT/HCPCS: 78815; A9552

== ENCOUNTER → 2021-05-26 | Outpatient (REF) | payer MEDICARE, OTHER ==
[~2021-05-26] MED LIST changes: +SALA1TAB PO
[2021-05-27 12:37] LABS: APPEARANCE, URINE HAZY (CLEAR); BACTERIA, URINE AUTO NEGATIVE (NEGATIVE); BILIRUBIN, URINE AUTO NEGATIVE (NEGATIVE); BLOOD, URINE BLOOD NEGATIVE (NEGATIVE); CALCIUM OXALATE CRYSTALS SMALL; COLOR, URINE YELLOW (YELLOW); GLUCOSE, URINE (UA) AUTO NEGATIVE (NEGATIVE); KETONE, URINE AUTO NEGATIVE (NEGATIVE); LEUKOCYTE ESTERASE, URINE AUTO 3+ (NEGATIVE); MUCUS, URINE SMALL (NEGATIVE); NITRITE, URINE AUTO NEGATIVE (NEGATIVE); PROTEIN, URINE AUTO 1+ mg/dL (NEGATIVE); RBC, URINE AUTO 0 /HPF (0-3); SPECIFIC GRAVITY URINE AUTO 1.016 (1.002-1.035); SQUAMOUS EPITHELIAL CELL UR AU 1 /HPF (0-6); UROBILINOGEN, URINE AUTO 0.2 mg/dL (0.0-2.0); WBC, URINE AUTO 46 /HPF (0-3)
== END ==
LOC: M SFHCCLAY 11:21
PROVIDERS: ATTEND Family Medicine
DX: R30.0 Dysuria (principal)

== ENCOUNTER → 2021-07-07 | Outpatient (REF) | payer MEDICARE, OTHER ==
[~2021-07-07] MED LIST changes: -VERA180T3 PO; +VERA180T50 PO
[2021-07-07 11:40] LABS: BASO # 0.1 10^3/uL (0.0-0.2); BASO % 0.5 % (0.0-1.0); EOS # 0.2 10^3/uL (0.0-0.5); EOS % 1.8 % (0.0-3.0); HEMOGLOBIN 11.8 g/dl (12.0-15.5); LYMPH # 1.7 10^3/uL (1.5-5.0); LYMPH % 16.3 % (24.0-44.0); MEAN CORPUSCULAR HEMOGLOBIN 29.9 pg (27.0-33.0); MEAN CORPUSCULAR HGB CONC 31.1 g/dl (32.0-36.5); MEAN CORPUSCULAR VOLUME 96.4 fl (80.0-96.0); MONO # 0.5 10^3/uL (0.0-0.8); MONO % 5.2 % (2.0-8.0); NEUTROPHILS # 7.9 10^3/uL (1.5-8.5); NEUTROPHILS % 75.9 % (36.0-66.0); PLATELET COUNT, AUTOMATED 293 10^3/uL (150-450); RED BLOOD COUNT 3.94 10^6/uL (4.00-5.40); WHITE BLOOD COUNT 10.4 10^3/uL (4.0-10.0)
[2021-07-07 12:58] LABS: ALBUMIN 3.3 GM/DL (3.2-5.2); BILIRUBIN,TOTAL 0.3 MG/DL (0.2-1.0); CA15-3 ANTIGEN 11.6 U/ML (<32.4); CALCIUM LEVEL 8.8 MG/DL (8.8-10.2); CREATININE FOR GFR 1.12 MG/DL (0.55-1.30); POTASSIUM SERUM 4.2 MEQ/L (3.5-5.1); TOTAL PROTEIN 7.1 GM/DL (6.4-8.2)
== END ==
LOC: M LABDRAWC 11:14
PROVIDERS: ATTEND Internal Medicine Medical Oncology
DX: M85.80 Other specified disorders of bone density and structure, unspecified site (principal); M89.9 Disorder of bone, unspecified; C50.911 Malignant neoplasm of unspecified site of right female breast; C79.51 Secondary malignant neoplasm of bone; M19.90 Unspecified osteoarthritis, unspecified site

== ENCOUNTER → 2021-07-11 | Outpatient (CLI) | payer MEDICARE, OTHER ==
[~2021-07-11] MED LIST changes: +ISOVUE-370 76% 100ML VIAL As Ordered ONE
--- NOTE | 2021-07-11 16:08 | REP ---
INDICATION: MET BREAST CA COMPARISON: None TECHNIQUE: Axial contrast enhanced images from the thoracic inlet to the upper abdomen using 100 ml Isovue 370 intravenous contrast material followed by contrast-enhanced CT of the neck. Coronal and sagittal reformations obtained. This CT examination was performed using the following dose reduction techniques: Automated exposure control, adjustment of mA and/or kv according to the patient's size, and use of iterative reconstruction technique. FINDINGS: Lung coughlin demonstrate diffuse chronic age-related interstitial changes and emphysematous disease. Scattered small bilateral ill-defined opacities and small nodules are identified. No effusion. No pneumothorax. Small mediastinal and hilar lymph nodes are nonspecific. Atherosclerotic changes to the thoracic aorta and coronary arteries noted without aortic aneurysm or dissection. Cardiomegaly identified without pericardial effusion. Musculoskeletal structures demonstrate osteopenia and degenerative changes. There appears to be heterogeneous sclerosis to the T4 vertebral body with an associated blastic soft tissue lesion along the right-side of the vertebral body. There is mild nonspecific compression deformity along with sclerosis involving the superior endplate at T8. IMPRESSION: 1. Small suspicious scattered pulmonary parenchymal lesions suggesting possible metastatic disease. 2. Metastatic disease involving T4 vertebral body and possible T8 pathologic compression deformity. <Electronically signed by Brendan Cortez > 07/11/21 [id number]
--- NOTE | 2021-07-11 16:49 | REPVR ---
PROCEDURE INFORMATION: Exam: CT Neck With Contrast Exam date and time: 07/11/2021 3:34 PM Age: 86 years old Clinical indication: Neck pain; Additional info: Met breast CA TECHNIQUE: Imaging protocol: Computed tomography images of the neck with contrast. Radiation optimization: All CT scans at this facility use at least one of these dose optimization techniques: automated exposure control; mA and/or kV adjustment per patient size (includes targeted exams where dose is matched to clinical indication); or iterative reconstruction. Contrast material: ISOVUE 370; Contrast volume: 50 ml; Contrast route: INTRAVENOUS (IV); COMPARISON: PET/CT Skull/mid thigh 04/25/2021 12:49 PM FINDINGS: Orbital cavity: Bilateral prior cataract surgery. Paranasal sinuses: Moderate lateral right maxillary sinus mucosal thickening. Nasopharynx: Unremarkable. Oropharynx: Unremarkable. No significant tonsillar enlargement. Hypopharynx: Unremarkable. Larynx: Unremarkable. Normal epiglottis. Retropharyngeal space: Unremarkable. Submandibular/Parotid glands: 2.8 cm superficial lobe left parotid enhancing mass, previously PET avid. 8.9 mm superficial lobe right parotid enhancing mass previously PET avid. Thyroid: 10 mm right thyroid hypoenhancing relatively well-circumscribed lesion. Additional 4.3 mm right thyroid hypodensity. Lymph nodes: Small previously PET avid right axillary lymph nodes redemonstrated, stable. Trachea: Visualized trachea is unremarkable. Lungs: Posterior right pulmonary apical, anterior left pulmonary apical parenchymal scarring. Bones/joints: Severe C6-7 degenerative disc disease with severe spondylosis. C6-C7 congenital block vertebra. Moderate left C3-C4, C4-C5, and C7-T1 primary facet osteoarthritis. Destructive lesion right posterosuperior T4 vertebral body and pedicle. Healed fracture left T4 vertebral pedicle (series 201, image 66). Additional lytic lesion lateral left T4 vertebral body with extraosseous soft tissue mass measuring 11 mm. Vasculature: Bilateral carotid atherosclerotic calcifications. Soft tissues: Moderate centrilobular emphysema bilaterally. IMPRESSION: 1. Bilateral enhancing parotid masses, previously PET avid, similar size. 2. Destructive lesion right posterosuperior T4 vertebral body and pedicle, similar to prior study. 3. Healed fracture left T4 vertebral pedicle. 4. Additional lytic lesion lateral left T4 vertebral body with small extraosseous soft tissue mass, similar to prior study. 5. Recommend nonemergent thyroid sonography for further evaluation of a right thyroid nodule versus cyst. 6. Small previously PET avid right axillary lymph nodes redemonstrated, stable. 7. Pulmonary emphysema. COMMENTS: Consistent with the [employer]'s Incidental Findings Committee white paper (J Am Mayra Radiol 2015): In patients aged 35 years and older with an incidental thyroid nodule equal to or greater than 1.[address], MRI or extrathyroidal US, further evaluation with dedicated thyroid US is recommended for patients with normal life expectancy and without comorbidities. For smaller nodules without suspicious features, no further evaluation or follow up is recommended. Electronically signed by: Bradly Lira On 07/11/2021 16:49:35 PM
== END ==
LOC: M RAD 15:20
PROVIDERS: ATTEND Internal Medicine Medical Oncology
DX: C79.81 Secondary malignant neoplasm of breast (principal); R93.89 Abnormal findings on diagnostic imaging of other specified body structures; J43.0 Unilateral pulmonary emphysema [MacLeod's syndrome]
CPT/HCPCS: 70491; 71260; Q9967

== ENCOUNTER → 2021-07-26 | Outpatient (CLI) | payer MEDICARE, OTHER ==
[~2021-07-26] MED LIST changes: +COLA100C5 PO; -ISOVUE-370 76% 100ML VIAL As Ordered ONE; +MELO7.5T35 PO; +NASA1SPR NARES; +ONDA4TAB6 PO; +OXYC10TA3 PO; +VERA180T42 PO; -VERA180T50 PO; +VITA500C24 PO
--- NOTE | 2021-07-26 15:53 | DEXAMM ---
INDICATION: COMPRESSION FX T8. COMPARISON: 07/11/2005 as well as other prior exams. TECHNIQUE: Bone density was measured using dual-energy x-ray absorptiometry (DEXA). FINDINGS: AP SPINE L1-L4 BMD 0.793 g/cm2 Young Adult T-Score -3.2 Age Matched Z-Score -1.3. LT FEMUR, TOTAL BMD 0.535 g/cm2 Young Adult T-Score -3.8 Age Matched Z-Score -1.4. LT NECK BMD 0.572 g/cm2 Young Adult T-Score -3.4 Age Matched Z-Score -0.9. RT FEMUR, TOTAL BMD 0.525 g/cm2 Young Adult T-Score -3.8 Age Matched Z-Score -1.4. RT NECK BMD 0.544 g/cm2 Young Adult T-Score -3.6 Age Matched Z-Score -1.1. IMPRESSION: There is osteoporosis of the spine. There is osteoporosis of the left hip. There is osteoporosis of the right hip. The density of the spine has decreased 12.3% since the initial exam on 05/30/1999. The density of the spine decreased 7.9% since most recent exam on 07/11/2005. The density of the left hip has decreased 29.3% since initial exam on 05/30/1999. The density of the left hip has decreased 25.8% since most recent exam on 07/11/2005. The density of the right hip has decreased 27.4% since the initial exam on 05/30/1999. The density of the right hip has decreased 25.5% since the most recent exam on 07/11/2005. FOLLOW-UP: Recommendation for the next bone density exam: 2 years. <Electronically signed by Ramo German > 07/26/21 [id number]
--- NOTE | 2021-07-26 15:59 | REP ---
INDICATION: RIGHT BREAST CA. COMPARISON: 02/21/2021. TECHNIQUE: Real-time sonographic evaluation of entire right breast performed. FINDINGS: At the 4 o'clock position a spiculated solid mass is again visualized. There is an adjacent HydroMARK clip. There is internal vascularity with Doppler evaluation. It measures 3.9 x 1.4 x 2.1 cm with KP a value 141 with elastography. Prior dimensions were measured to be 4.4 x 2.4 x 2.2 cm. There is a simple cyst in the retroareolar region measuring 3 x 2 x 4 mm. Reportedly there is a red palpable lump at the 3 o'clock position at the biopsy entry site. Sonographically get act location there is subcutaneous hypoechoic tissue which measures 2.4 x 0.5 x 3.0 cm, KP a value 26.3. IMPRESSION: BIRADS/ACR category 6, known right breast cancer. The spiculated mass at 4 o'clock currently measures 3.9 x 1.4 x 2.1 cm, previously 4.4 x 2.4 x 2.2 cm. Simple cyst retroareolar 3 x 2 x 4 mm. Superficial hypoechoic tissue at the site of a palpable red lump at 3 o'clock may represent an area of cellulitis, measuring 2.4 x 0.5 x 3.0 cm. There is no associated fluid collection. RECOMMENDATION: None. <Electronically signed by Ramo German > 07/26/21 [id number]
== END ==
LOC: M WHC 14:21
PROVIDERS: ATTEND Internal Medicine Medical Oncology
DX: C50.911 Malignant neoplasm of unspecified site of right female breast (principal); M81.0 Age-related osteoporosis without current pathological fracture; M85.89 Other specified disorders of bone density and structure, multiple sites

== ENCOUNTER → 2021-09-12 | Outpatient (REF) | payer MEDICARE, OTHER ==
[~2021-09-12] MED LIST changes: -D31000TA2 PO; +VITA100093 PO
== END ==
LOC: M LAB REF 19:17
DX: Z02.2 Encounter for examination for admission to residential institution (principal); Z11.52 Encounter for screening for COVID-19

== ENCOUNTER → 2021-10-19 | Outpatient (REF) ==
[~2021-10-19] MED LIST changes: +D31000TA2 PO; -VITA100093 PO
== END ==
LOC: M LAB REF 13:51
PROVIDERS: ATTEND Family Medicine
DX: Z02.2 Encounter for examination for admission to residential institution (principal)